=== PATIENT | female | born 1990 | race Caucasian/White ===

== ENCOUNTER 2017-05-31 03:56 | Inpatient (IN) | payer BC ==
[2017-05-31] MEDS ORDERED: Misoprostol 25 MCG (1/4 of 100 MCG) Tab ONE ×2 (07:34→15:20)
--- NOTE | 2017-05-31 07:40 | PCM.SN ---
- Free Text/Narrative Note: Cytotec 25 mcg placed at cervix 1-2,50,soft, posterior, vertex-2 Cat I FHR
--- NOTE | 2017-05-31 10:45 | PCM.SN ---
- Free Text/Narrative Note: Cervix 1-2 cm, 60%, soft, posterior, vertex-3. Due for second Cytotec at 1130. Cat I FHR.
[2017-05-31] MEDS ORDERED: Sodium Chloride 0.9% 10 ML Syringe FLUSH PRN (11:12)
[2017-05-31] MEDS: Misoprostol 25 MCG (1/4 of 100 MCG) Tab VAG SCH ×2 (11:35→16:55)
--- NOTE | 2017-05-31 12:45 | PCM.LDHP ---
<MartiCheri - Last Filed: 05/31/17 11:25> L&D History of Present Illness - General Date of Service: 05/31/17 Admit Problem/Dx: History of Present Illness: Mal is a pleasant 26-year-old white female, 39 weeks 3/7 days gestation with an TONO of 06/04/2017 who was admitted this morning, 05/31/2017 to labor and delivery for a scheduled induction. The patient has gestational diabetes and checks her blood sugar 4x/day. She has been experiencing [place] Murguia contractions for the past 2 weeks. Upon admission, she is presenting with a cervix measuring 1-2 cm, posterior, soft, vertex -[address] Le administered 25 mcg of Cytotec vaginally to be continued Q3h x 3 doses. Patient remarks that the contractions start in her shoulders and she can feel them move down towards her pelvis. Patient has been experiencing fatigue and appropriate weight changes throughout . Denies fever/chills, sweating/night sweats and malaise. Has experienced mild heartburn that has been relieved with Tums. She has noticed dribbling and incontinence and wears/changes pads throughout the day. Patient experiences nausea and vomiting every morning around the time she brushes her teeth. Gums bleed easily. Patient has had restless leg syndrome during this which is relieved with Tylenol and Benadryl. Course: The patient's last known menstrual period was 11/04/2015 with IUD implantation bleeding. She had an IUD removal 08/07/2016 with a positive test September 21, 2016. No control was in place at the time of conception. She received three ultrasounds throughout : 11/05/2016, 01/22/5017, 2016. First menstrual period began at 11 years old. Her course has consisted of gestational diabetes. Her previous in 2014 was positive for preeclampsia. Patient has received Tdap vaccinations, but her has not. Patient is Rh negative and received Rhogam on 03/14/2017. Group B strep screen was negative. Patient denies an up to date flu shot. Her last pap smear was in October 2016 was unremarkable. Weight gain was approximately 335 pounds up to 347 pounds. Her vital signs were stable throughout and her fundal height growth was appropriate. Patient would like an epidural and plans on . Laboratory Testing: MRSA screening test-pending results. Allergies: No known drug allergies. Immunizations: Up to date on immunizations. Patient has received Rhogam for Rh negative blood type. Patient has received the Tdap vaccination. No current flu shot. Current Home Medications: Vitamins. 1 tablet PO qd. Glyburide PO 2.5 mg HS. Tylenol x 2 tablets bedtime for restless leg syndrome. Benadryl 25 mg. 2 tablets bedtime for restless leg syndrome. Tums. PRN for heartburn. Current Hospital Medications: Vitamins. 1 tablet PO qd. Cytotec. 25 mcg vaginally Q3h x 3 doses. Past Medical History: Racing heart beat in early . 2017. Preeclampsia with first . 2013. Gonorrhea. 2012. HTN with first . 2014. Positive MRSA history. 2007. Ear infections throughout childhood. Past Surgical History: Cholecystectomy- 24 years old. 2015 outpatient procedure. Vaginal delivery- 24 years old. 2013. 1 day inpatient. [place] teeth extraction- 18 years old. 2008 outpatient procedure. MRSA removed from left face and left knee. 17 years old. 2007 3 days inpatient. Infected cat scratch- 2 years old. 2001. 1 night inpatient. Family History: Father- 65 years old. Kidney cancer. Liver cancer. Mother-57 years old. Cervical cancer. Brother- 35 years old. Alive and well. Son- 2 years old. Alive and well. Social History: Patient is and an RN at [employer]. She has a Bachelors degree. She lives in a home with her and their 2-year old and feels safe at home. She is in a monogamous relationship with one sexual partner in the last 6 months. Caffeine: 1 cup of coffee/day. Occasional Red Bull Zinger drink. Alcohol: Denies alcohol use. Tobacco: Denies tobacco use. Diet: Fast food, pastas and casseroles. Exercise: Patient plays slow pitch softball Saturday and Saturday evenings. She denies prescription drug and illicit drug abuse. No service. Travel: Denies travel outside of the country in the last 6 months. 2 dogs in the home. Review of Systems: General: See HPI. Skin: Denies rashes/sores/lesions/lumps/masses. No pruritus, dryness, excessive moisture changes. Head: Denies headaches, head trauma, dizziness, syncope, vertigo, loss of consciousness or concussions. Ears: Denies otalgia, past infections, drainage/discharge and tinnitus. Eyes: Patient has never had an eye exam. Denies redness/tearing/pain, diplopia/ blurriness, or history of foreign bodies. No glasses or contact lenses. Nose/Sinuses: Patient experiences sinus pressure and congestion. She does snore. Denies sinus pain, epistaxis, sneezing and frequent colds. Mouth: Last dental exam was several years ago. Denies toothaches, pain/soreness or throat hoarseness. Neck: Denies pain, stiffness/limited range of motion, masses or swelling. Breasts: Patient has noticed discrete nipple color changes- pink to light brown. Some tenderness to touch. Patient does perform occasional self breast exams and has inverted nipples since breast development. Denies pain, lumps/ masses, and nipple discharge. Respiratory: Denies pleuritic chest pain, difficulty breathing, cough/sputum/ hemoptysis. No h/o wheezing, asthma or bronchitis. No known TB exposure, PPD, or CXR. Cardiovascular: Patient experienced tachycardia in early which Marry Denney worked-up with unremarkable results. States she has pitting edema on her abdomen. She experienced HTN and preeclampsia with her previous . Denies chest pain/discomfort/tightness/palpitations or diaphoresis. No shortness of breath, dyspnea, exertional dyspnea, or orthopnea. No h/o HTN, murmurs or heart disease. Gastrointestinal: Experiences heartburn which is relieved by Tums. Patient experiences nausea and vomiting every morning around the time she brushes her teeth. Denies abdominal pain/discomfort, food intolerances, dysphagia with solids or liquids, diarrhea, constipation, rectal bleeding, hemorrhoids or jaundice. Denies craving starch, ice and brittney. Genitourinary: Patient is experiencing dribbling/incontinence and is urinating more frequently due to this . Occasionally notices difficulty initiating a urine stream. Patient was positive for gonorrhea in 2012. Denies a change in the force or color of her urine or pain with urination. No history of infections or hematuria. Appropriate libido and no dyspareunia. SCHEDULE PLANNING MANAGER: See HPI Musculoskeletal: Experiences restless leg syndrome at night. Denies intermittent claudication, varicosities, decreased strength/ROM. Denies history of back pain/disc disease and sciatica. Neurologic: Denies memory loss, tremors or trouble concentrating, h/o convulsions/seizures or infections/meningitis. Hematologic: Gums bleed easily during . Denies easy bruising, h/o transfusions, anemia and blood diseases. Endocrine: Patient is a gestational diabetic. Denies intolerance to heat/cold, nervousness, sleeplessness, nocturia, and h/o thyroid disease. Psychiatric: Expresses that she experiences more tension and irritability with this . Denies depression, mood changes, agitation, anxiety, suicidal/ homicidal thoughts and sleep disturbances. Physical Examination: VS on admission: BP 129/62, HR 79, RR 14, Temp 96.8 degrees F, Ht: 5 feet 9 inches, Wt: 347 pounds. General: The patient is a well-developed, well-nourished pleasant female of stated age, in no acute distress. Skin: Skin of legs, arms and abdomen is uniformally cool and dry without lesions or masses. No cyanosis, clubbing, jaundice, pallor or edema noted. Healthy nails, strong and not brittle. Eyes: Conjunctiva is pink and moist bilaterally. No redness or injections of conjunctiva or sclera. Lymph nodes: No enlargements or tenderness to palpation. Lungs: No respiratory distress, nasal flaring, intercostal retractions, or gasping. CTA bilaterally. Cardiovascular: RRR, S1 and S2 noted.. No M/R/G. Dorsalis pedis, posterior tibial and radial pulses are 2+ and symmetric. Capillary refill <2 seconds. Patient has 1+ pitting edema on abdomen and trace edema on lower legs and feet. Breasts: Unremarkable to palpation. Abdomen: Patient has 1+ pitting edema on abdomen. Protuberant with . Fundal height was not assessed. Pelvic: Exam reveals 1-2 cm dilated cervix, posterior, soft, and vertex -2. Extremities: Trace edema on lower legs and feet Reflexes: Patellar reflexes were appropriate. No hyperreflexia noted. Labs/Studies: MRSA screen. Assessment: 1- 39 weeks 3/7 days intrauterine . 2- Cervix: 1-2 cm, posterior, soft and vertex -2. 3- Gestational diabetes. 4- Rh negative. 5- Obesity. 6- Nausea and vomiting associated with . Plan: 1- Delivery. 2- Cytotec administration. 3- Rhogam administration. 4- Rupture membranes, if able, to evaluate amniotic fluids. Admission Diagnosis/Problem Admission Diagnosis/Problem 05/31/17 11:26 Source of Information: Patient History Limitations: Reports: No Limitations - History of Present Illness Timing/Duration: Reports: seconds: (contractions lasting 30 seconds) Location, : Reports: Abdomen Quality: Reports: Pressure Severity: Mild - Related Data Allergies/Adverse Reactions: Allergies Allergy/AdvReac Type Severity Reaction Status Date / Time No Known Allergies Allergy Verified 10/21/14 13:25 Home Medications: Home Meds PNV95/Ferrous Fumarate/FA [ Multivitamins] 1 each PO DAILY 09/24/14 [ History] Acetaminophen/oxyCODONE [Percocet 325-5 MG] 1 - 2 tab PO Q4H PRN #60 tab [Rx] Ondansetron [Zofran ODT] 4 mg PO Q6H PRN #30 tab.dis 10/22/14 [Rx] Past Medical History Endocrine/Metabolic History: Reports: Diabetes, Gestational - Infectious Disease History Infectious Disease History: Reports: MRSA Social & Family History - Tobacco Use Smoking Status *Q: Never Smoker Second Hand Smoke Exposure: No - Caffeine Use Caffeine Use: Reports: Coffee - Alcohol Use Days Per Week of Alcohol Use: 0 Number of Drinks Per Day: 0 Total Drinks Per Week: 0 - Recreational Drug Use Recreational Drug Use: No Drug Use in Last 12 Months: No - Sexual History Sexual History: Reports: Other (See Below) (Positive for gonorrhea in 2013. Treated and cleared.) H&P Review of Systems - Review of Systems: Review Of Systems: See Below General: Reports: Fatigue HEENT: Reports: Sinus Congestion Cardiovascular: Reports: Palpitations (early .) Gastrointestinal: Reports: Nausea, Vomiting Genitourinary: Reports: Frequency, Incontinence Hematologic/Lymphatic: Reports: Easy Bleeding (gums) Immunologic: Reports: Seasonal Allergy L&D Exam - Exam Exam: See Below - Vital Signs Vital Signs: Last Vital Signs Temp 96.8 F 05/31/17 08:00 Pulse 94 05/31/17 08:00 Resp 18 05/31/17 08:00 BP 136/80 05/31/17 08:00 Pulse Ox Weight: 348 lb - OB Specific Contraction Intensity: Mild Movement: Active Orders Last 24hrs: Assessment: 1- 39 weeks 3/7 days intrauterine . 2- Cervix: 1-2 cm, posterior, soft and vertex -2. 3- Gestational diabetes. 4- Rh negative. 5- Obesity. 6- Nausea and vomiting associated with . Plan: 1- Delivery. 2- Cytotec administration. 3- Rhogam administration. 4- Rupture membranes, if able, to evaluate amniotic fluids. Active Orders 24 hr Category Date Time Status Communication Order [RC] ASDIRECTED Care 05/31/17 11:13 Active Communication Order [RC] ASDIRECTED Care 05/31/17 11:13 Active Communication Order [RC] ASDIRECTED Care 05/31/17 11:13 Active Monitoring [RC] INTERMITTENT Care 05/31/17 11:13 Active Notify Provider [RC] ASDIRECTED Care 05/31/17 11:13 Active Peripheral IV Care [RC] . DIRECTED Care 05/31/17 11:13 Active Vaginal Exam [RC] ASDIRECTED Care 05/31/17 11:13 Active Vital Signs [RC] ASDIRECTED Care 05/31/17 11:13 Active Regular Diet [DIET] Diet 05/31/17 Lunch Active METH-RESIST S.AUR,MRSA BY PCR [MOLEC] Routine Lab 05/31/17 08:20 Ordered Lactated Ringers [Ringers, Lactated] 1,000 ml Med 05/31/17 11:15 Active IV ASDIRECTED Misoprostol [Cytotec] Med 05/31/17 11:30 Active 25 mcg VAG ONETIME Sodium Chloride 0.9% [Saline Flush] Med 05/31/17 11:12 Active 10 ml FLUSH ASDIRECTED PRN Peripheral IV Insertion Adult [OM.PC] Routine Oth 05/31/17 11:13 Ordered Saline Lock Insert [OM.PC] Routine Oth 05/31/17 11:12 Ordered Medication Orders Lactated Ringer's (Ringers, Lactated) 1,000 mls @ 40 mls/hr IV ASDIRECTED TAMIE Misoprostol (Cytotec) 25 mcg VAG ONETIME TAMIE Stop: 06/02/17 11:31 Sodium Chloride (Saline Flush) 10 ml FLUSH ASDIRECTED PRN PRN Reason: Keep Vein Open <Maco Le - Last Filed: 05/31/17 13:19> L&D History of Present Illness - General Admit Problem/Dx: Admission Diagnosis/Problem Admission Diagnosis/Problem L&D Exam - Vital Signs Vital Signs: Last Vital Signs Temp 96.8 F 05/31/17 08:00 Pulse 94 05/31/17 08:00 Resp 18 05/31/17 08:00 BP 136/80 05/31/17 08:00 Pulse Ox - OB Specific Presentation: Vertex - Damian Score Damian Score Cervix Position: Posterior Damian Score Consistency: Soft Damian Score Effacement: 31-50% Damian Score Dilation: 1-2 cm Damian Score 's Station: -2 Damian Score Total: 5 - Exam General: Alert, Oriented HEENT: Conjunctiva Clear, Mucosa Moist & [place], Normal Nasal Septum, PERRLA Neck: Supple, Trachea Midline Lungs: Clear to Auscultation, Normal Respiratory Effort Cardiovascular: Regular Rate, Regular Rhythm GI/Abdominal Exam: Normal Bowel Sounds, Soft, Non-Tender, No Organomegaly, No Distention, No Abnormal Bruit, No Mass, Pelvis Stable Genitourinary: Normal external exam, Normal bimanual exam, Normal speculum exam Back Exam: Normal Inspection, Full Range of Motion Extremities: Normal Inspection, Normal Range of Motion, Non-Tender, No Pedal Edema, Normal Capillary Refill Skin: Warm, Dry, Intact Neurological: Cranial Nerves Intact, Reflexes Equal Bilateral Psychiatric: Alert, Normal Affect, Normal Mood - Patient Data Lab Results Last 24 hrs: Laboratory Results - last 24 hr 05/31/17 Range/Units 10:55 MRSA (PCR) Negative - Problem List (1) 39 weeks gestation of SNOMED Code(s): 27564327 ICD Code: Z3A.39 - 39 WEEKS GESTATION OF Status: Acute Current Visit: Yes (2) Gestational diabetes mellitus (GDM) affecting second SNOMED Code(s): 94032789782710 ICD Code: O24.419 - GESTATIONAL DIABETES MELLITUS IN , UNSP CONTROL ; O09.40 - SUPERVISION OF W GRAND MULTIPARITY, UNSP TRIMESTER Status : Acute Current Visit: Yes (3) Rh negative status during in third trimester, antepartum SNOMED Code(s): 219480193, 299163233 ICD Code: O09.893 - SUPERVISION OF OTHER HIGH RISK PREGNANCIES, THIRD TRIMESTER Status: Acute Current Visit: Yes Problem List Initiated/Reviewed/Updated: No Orders Last 24hrs: Active Orders 24 hr Category Date Time Status Communication Order [RC] ASDIRECTED Care 05/31/17 11:13 Active Communication Order [RC] ASDIRECTED Care 05/31/17 11:13 Active Communication Order [RC] ASDIRECTED Care 05/31/17 11:13 Active Monitoring [RC] INTERMITTENT Care 05/31/17 11:13 Active Notify Provider [RC] ASDIRECTED Care 05/31/17 11:13 Active Peripheral IV Care [RC] . DIRECTED Care 05/31/17 11:13 Active Vaginal Exam [RC] ASDIRECTED Care 05/31/17 11:13 Active Vital Signs [RC] ASDIRECTED Care 05/31/17 11:13 Active Regular Diet [DIET] Diet 05/31/17 Lunch Active Lactated Ringers [Ringers, Lactated] 1,000 ml Med 05/31/17 11:15 Active IV ASDIRECTED Misoprostol [Cytotec] Med 05/31/17 11:30 Active 25 mcg VAG ONETIME Sodium Chloride 0.9% [Saline Flush] Med 05/31/17 11:12 Active 10 ml FLUSH ASDIRECTED PRN Peripheral IV Insertion Adult [OM.PC] Routine Oth 05/31/17 11:13 Ordered Saline Lock Insert [OM.PC] Routine Oth 05/31/17 11:12 Ordered Medication Orders Lactated Ringer's (Ringers, Lactated) 1,000 mls @ 40 mls/hr IV ASDIRECTED TAMIE Misoprostol (Cytotec) 25 mcg VAG ONETIME TAMIE Stop: 06/02/17 11:31 Last Admin: 05/31/17 11:35 Dose: 25 mcg Sodium Chloride (Saline Flush) 10 ml FLUSH ASDIRECTED PRN PRN Reason: Keep Vein Open Assessment/Plan Comment:: Induction of labor
--- NOTE | 2017-05-31 13:25 | PCM.SN ---
- Free Text/Narrative Note: Second dose of Cytotec at 1130 and MRSA screen negative. Third dose of Cytotec will be given at about 1430.
--- NOTE | 2017-05-31 17:02 | PCM.SN ---
- Free Text/Narrative Note: Cervix 2, 60, soft, post, vertex-2 Cat I FHR. Contractions [id number]. Third 25 mcg cytotec placed. Start pitocin if contractions stall out at 2100.
--- NOTE | 2017-05-31 17:22 | PCM.SN ---
- Free Text/Narrative Note: Cervix 1-2, 70, soft, posterior, vertex zero station and contractions 2-3 minutes. Cat I FHR. Pitocin at 18 miu/min.
[2017-05-31] MEDS: Lactated Ringers 1,000 ML IV SCH ×3 (20:55→23:05)
[2017-05-31] MEDS ORDERED: Lidocaine 1% 50 ML MDV INJECT ONE (21:26)
[2017-05-31] MEDS ORDERED: Ondansetron 4 MG/2 ML SDV IVPUSH PRN (21:26)
[2017-05-31] MEDS ORDERED: Lactated Ringers 1,000 ML IV SCH (21:30)
[2017-05-31] MEDS ORDERED: fentaNYL 100 MCG/2 ML SDV EPIDUR PRN (21:35)
[2017-05-31] MEDS ORDERED: diphenhydrAMINE 50 MG/ML SDV IVPUSH PRN (21:35)
[2017-05-31] MEDS ORDERED: Bupivacaine/fentaNYL/NS 100 ML Bag EPIDUR SCH (21:45)
--- NOTE | 2017-05-31 22:14 | PCM.PREANE ---
Preanesthetic Assessment - Anesthesia/Transfusion/Family Hx Anesthesia History: Prior Anesthesia Without Reaction Family History of Anesthesia Reaction: No Transfusion History: No Prior Transfusion(s) - Review of Systems General: No Symptoms Pulmonary: No Symptoms Cardiovascular: No Symptoms Gastrointestinal: No Symptoms Neurological: No Symptoms Other: Reports: Diabetes (gestational) - Physical Assessment Pulse: 94 O2 Sat by Pulse Oximetry: 97 Respiratory Rate: 18 Blood Pressure: 136/80 Temperature: 36.0 C Vital Signs: Last Vital Signs Temp 36.0 C 05/31/17 08:00 Pulse 94 05/31/17 08:00 Resp 18 05/31/17 08:00 BP 136/80 05/31/17 08:00 Pulse Ox Height: 1.78 m Weight: 157.85 kg ASA Class: 2 Mental Status: Alert & Oriented x3 Airway Class: Mallampati = 1 Dentition: Reports: Normal Dentition Thyro-Mental Finger Breadths: 3 Mouth Opening Finger Breadths: 3 ROM/Head Extension: Full Lungs: Clear to Auscultation, Normal Respiratory Effort Cardiovascular: Regular Rate, Regular Rhythm - Lab Values: Laboratory Last Values WBC 16.77 K/mm3 (3.98-10.04) H 05/31/17 21:38 RBC 3.95 M/mm3 (3.98-5.22) L 05/31/17 21:38 Hgb 11.2 gm/L (11.2-15.7) 05/31/17 21:38 Hct 34.0 % (34.1-44.9) L 05/31/17 21:38 MCV 86.1 fl (79.4-94.8) 05/31/17 21:38 MCH 28.4 pg (25.6-32.2) 05/31/17 21:38 MCHC 32.9 g/dl (32.2-35.5) 05/31/17 21:38 RDW Std Deviation 44.0 fL (36.4-46.3) 05/31/17 21:38 Plt Count 251 K/mm3 (182-369) 05/31/17 21:38 MPV 10.0 fl (9.4-12.3) 05/31/17 21:38 MRSA (PCR) Negative 05/31/17 10:55 - Allergies Allergies/Adverse Reactions: Allergies Allergy/AdvReac Type Severity Reaction Status Date / Time No Known Allergies Allergy Verified 05/31/17 20:31 - Anesthesia Plan Pre-Op Medication Ordered: None - Acknowledgements Anesthesia Type Planned: Epidural Pt an Appropriate Candidate for the Planned Anesthesia: Yes Alternatives and Risks of Anesthesia Discussed w Pt/Guardian: Yes Pt/Guardian Understands and Agrees with Anesthesia Plan: Yes PreAnesthesia Questionnaire Gastrointestinal History: Reports: GERD Endocrine/Metabolic History: Reports: Diabetes, Gestational - Infectious Disease History Infectious Disease History: Reports: MRSA - SUBSTANCE USE Smoking Status *Q: Never Smoker Tobacco Use Within Last Twelve Months: No Second Hand Smoke Exposure: No Days Per Week of Alcohol Use: 0 Number of Drinks Per Day: 0 Total Drinks Per Week: 0 Recreational Drug Use History: No - HOME MEDS Home Medications: Home Meds PNV95/Ferrous Fumarate/FA [ Multivitamins] 1 each PO DAILY 09/24/14 [ History] - CURRENT (IN HOUSE) MEDS Current Meds: Current Medications Diphenhydramine HCl (Benadryl) 25 mg IVPUSH Q6H PRN PRN Reason: Itching Ephedrine Sulfate (Ephedrine Sulfate) 5 mg IVPUSH ASDIRECTED PRN PRN Reason: HYPOTENTSION Fentanyl (Sublimaze) 100 mcg EPIDUR Q3H PRN PRN Reason: PAIN Last Admin: 05/31/17 22:06 Dose: 100 mcg Fentanyl/Bupivacaine HCl (Fentanyl/Bupivacaine/Ns 2 Mcg-0.125% 100 Ml) 100 ml EPIDUR ASDIRECTED TAMIE Last Admin: 05/31/17 22:07 Dose: 100 ml Lactated Ringer's (Ringers, Lactated) 1,000 mls @ 40 mls/hr IV ASDIRECTED TAMIE Last Admin: 05/31/17 20:55 Dose: 40 mls/hr Oxytocin 10 unit/ Lactated (Ringer's) 1,001 mls @ 12.01 mls/hr IV TITRATE TAMIE; 2 MUNITS/MIN PRN Reason: Protocol Lactated Ringer's (Ringers, Lactated) 1,000 mls @ 100 mls/hr IV ASDIRECTED TAMIE Misoprostol (Cytotec) 25 mcg VAG ONETIME TAMIE Stop: 06/02/17 11:31 Last Admin: 05/31/17 16:55 Dose: 25 mcg Ondansetron HCl (Zofran) 4 mg IVPUSH Q4H PRN PRN Reason: Nausea/Vomiting Sodium Chloride (Saline Flush) 10 ml FLUSH ASDIRECTED PRN PRN Reason: Keep Vein Open Discontinued Medications Lidocaine HCl (Xylocaine 1%) 20 ml INJECT ONETIME ONE Stop: 05/31/17 21:27 Misoprostol (Cytotec) Confirm Administered Dose 25 mcg .ROUTE .STK-MED ONE Stop: 05/31/17 07:35 Last Admin: 05/31/17 07:35 Dose: 25 mcg Misoprostol (Cytotec) Confirm Administered Dose 25 mcg .ROUTE .STK-MED ONE Stop: 05/31/17 15:21 Last Admin: 05/31/17 19:04 Dose: Not Given
[2017-05-31] MEDS ORDERED: Sodium Chloride 0.9% 10 ML ONE (22:15)
[2017-05-31] MEDS: ePHEDrine 50 MG/ML SDV IVPUSH PRN ×2 (22:24→22:34)
--- NOTE | 2017-05-31 23:36 | PCM.SN ---
- Free Text/Narrative Note: Spontaneous rupture of membranes at 2014 clear fluid. RN exam then cervix 3 cm. Exam now 4 cm, 60-70%, soft, midposition. Vertex -1. Cat I FHR. Epidural working well.
[2017-06-01] MEDS ORDERED: Lidocaine 1% 50 ML MDV ONE (03:58)
--- NOTE | 2017-06-01 04:26 | PCM.DEL ---
L & D Note - General Info Date of Service: 06/01/17 Mother's Due Date: 06/06/17 - Delivery Note Labor: Spontaneous, Augmented by Oxytocin Delivery Outcome: Livebirth (Female born 0356 hrs. Saturday06/01/17 JEFF tight shoulders taking approximately 60 seconds to deliver but never stuck Conrad, suprapubic pressure and gentle traction. Weight 4150 g/9 pounds 2.4 ounces Apgars 7/9) Infant Delivery Mode: Spontaneous Presentation: Right Occiput Anterior (JEFF) Nuchal Cord: None Prep: Povidone-Iodine (Betadine Anesthesia Type: Epidural Episiotomy Type: None Laceration: 1st Degree (Left labia minora at the level of the clitoris bleeding stopped with pressure not sutured) Placenta: Intact, Spontaneous (0401 hrs. Claudette examined intact discarded) Cord: 3 Vessels Estimated Blood Loss: 500 Resuscitation Needed: No : Suctioned, Bulb Syringe, Stimulated, Warmed, [place] Used, Warmer Used Provider: Maco Le Score 1 min: 7 Score 5 min: 9 - Patient Data Vitals - Most Recent: Last Vital Signs Temp 96.8 F 05/31/17 22:14 Pulse 88 06/01/17 01:31 Resp 18 05/31/17 22:14 BP 108/74 06/01/17 01:31 Pulse Ox 99 05/31/17 23:01 Weight - Most Recent: 348 lb I&O - Last 24 Hours: Intake & Output 05/31/17 05/31/17 06/01/17 14:59 22:59 06:59 Intake Total 0 1999 Balance 0 1999 Lab Results Last 24 Hours: Laboratory Results - last 24 hr 05/31/17 05/31/17 05/31/17 Range/Units 10:55 21:38 21:38 WBC 16.77 H (3.98-10.04) K/mm3 RBC 3.95 L (3.98-5.22) M/mm3 Hgb 11.2 (11.2-15.7) gm/L Hct 34.0 L (34.1-44.9) % MCV 86.1 (79.4-94.8) fl MCH 28.4 (25.6-32.2) pg MCHC 32.9 (32.2-35.5) g/dl RDW Std Deviation 44.0 (36.4-46.3) fL Plt Count 251 (182-369) K/mm3 MPV 10.0 (9.4-12.3) fl MRSA (PCR) Negative Blood Type O NEGATIVE Gel Antibody Screen Negative Med Orders - Current: Current Medications Diphenhydramine HCl (Benadryl) 25 mg IVPUSH Q6H PRN PRN Reason: Itching Ephedrine Sulfate (Ephedrine Sulfate) 5 mg IVPUSH ASDIRECTED PRN PRN Reason: HYPOTENTSION Last Admin: 05/31/17 22:34 Dose: 5 mg Fentanyl (Sublimaze) 100 mcg EPIDUR Q3H PRN PRN Reason: PAIN Last Admin: 05/31/17 22:06 Dose: 100 mcg Fentanyl/Bupivacaine HCl (Fentanyl/Bupivacaine/Ns 2 Mcg-0.125% 100 Ml) 100 ml EPIDUR ASDIRECTED TAMIE Last Admin: 05/31/17 22:07 Dose: 100 ml Lactated Ringer's (Ringers, Lactated) 1,000 mls @ 40 mls/hr IV ASDIRECTED TAMIE Last Admin: 05/31/17 23:05 Dose: 40 mls/hr Oxytocin 10 unit/ Lactated (Ringer's) 1,001 mls @ 12.01 mls/hr IV TITRATE TAMIE; 2 MUNITS/MIN PRN Reason: Protocol Last Titration: 06/01/17 03:37 Dose: 0 munits/min, 0 mls/hr Lactated Ringer's (Ringers, Lactated) 1,000 mls @ 100 mls/hr IV ASDIRECTED TAMIE Misoprostol (Cytotec) 25 mcg VAG ONETIME TAMIE Stop: 06/02/17 11:31 Last Admin: 05/31/17 16:55 Dose: 25 mcg Ondansetron HCl (Zofran) 4 mg IVPUSH Q4H PRN PRN Reason: Nausea/Vomiting Last Admin: 06/01/17 03:15 Dose: 4 mg Sodium Chloride (Saline Flush) 10 ml FLUSH ASDIRECTED PRN PRN Reason: Keep Vein Open Discontinued Medications Sodium Chloride (Normal Saline) Confirm Administered Dose 10 mls @ as directed .ROUTE .STK-MED ONE Stop: 05/31/17 22:16 Last Admin: 05/31/17 23:19 Dose: Not Given Lidocaine HCl (Xylocaine 1%) 20 ml INJECT ONETIME ONE Stop: 05/31/17 21:27 Lidocaine HCl (Xylocaine 1%) Confirm Administered Dose 50 ml .ROUTE .STK-MED ONE Stop: 06/01/17 03:59 Misoprostol (Cytotec) Confirm Administered Dose 25 mcg .ROUTE .STK-MED ONE Stop: 05/31/17 07:35 Last Admin: 05/31/17 07:35 Dose: 25 mcg Misoprostol (Cytotec) Confirm Administered Dose 25 mcg .ROUTE .STK-MED ONE Stop: 05/31/17 15:21 Last Admin: 05/31/17 19:04 Dose: Not Given - Problem List & Annotations (1) 39 weeks gestation of SNOMED Code(s): 09155657 Code(s): Z3A.39 - 39 WEEKS GESTATION OF Status: Acute Current Visit: Yes (2) Gestational diabetes mellitus (GDM) affecting second SNOMED Code(s): 99708675664261 Code(s): O24.419 - GESTATIONAL DIABETES MELLITUS IN , UNSP CONTROL; O09.40 - SUPERVISION OF W GRAND MULTIPARITY, UNSP TRIMESTER Status: Acute Current Visit: Yes (3) Rh negative status during in third trimester, antepartum SNOMED Code(s): 443360036, 667997820 Code(s): O09.893 - SUPERVISION OF OTHER HIGH RISK PREGNANCIES, THIRD TRIMESTER Status: Acute Current Visit: Yes - Problem List Review Problem List Initiated/Reviewed/Updated: No - My Orders Last 24 Hours: My Active Orders 05/31/17 07:00 Patient Status [ADT] Routine 05/31/17 11:12 Sodium Chloride 0.9% [Saline Flush] 10 ml FLUSH ASDIRECTED PRN Saline Lock Insert [OM.PC] Routine 05/31/17 11:13 Communication Order [RC] Communication Order [RC] Notify Provider [RC] Peripheral IV Care [RC] Vital Signs [RC] Peripheral IV Insertion Adult [OM.PC] Routine 05/31/17 11:15 Lactated Ringers [Ringers, Lactated] 1,000 ml IV ASDIRECTED 05/31/17 11:30 Misoprostol [Cytotec] 25 mcg VAG ONETIME 05/31/17 19:15 Oxytocin [Pitocin] 10 unit Lactated Ringers [Ringers, Lactated] 1,000 ml IV TITRATE 05/31/17 21:26 Communication Order [RC] Notify Provider [RC] PRN Ondansetron [Zofran] 4 mg IVPUSH Q4H PRN Electronic Heart Tones Ext w TOCO [WOMSER] Routine Electronic Heart Tones Internal [WOMSER] Per Unit Routine Resuscitation Status Routine 05/31/17 21:30 Lactated Ringers [Ringers, Lactated] 1,000 ml IV ASDIRECTED 05/31/17 Lunch Regular Diet [DIET] - Assessment Assessment:: Spontaneous vaginal delivery at 0356 hrs. on Saturdays06/01/17 - Plan Plan:: Induction of labor
[2017-06-01] MEDS ORDERED: Docusate Sodium 100 MG Cap PO PRN (04:55)
[2017-06-01] MEDS ORDERED: Acetaminophen 325 MG Tab PO PRN (04:55)
[2017-06-01] MEDS ORDERED: Benzocaine/Menthol 20%-0.5% Spray 56 GM Canister TOP PRN (05:02)
[2017-06-01] MEDS: Ibuprofen 600 MG Tab PO PRN ×2 (05:24→13:31)
--- NOTE | 2017-06-01 11:01 | PCM.SN ---
- Free Text/Narrative Note: note: Afebrile, chest clear no abnormal breath sounds. Heart sounds normal. Breast exam negative. Abdomen nontender uterus at U -2. No heavy vaginal bleeding no leg cramping reflexes normal.
[2017-06-01] MEDS ORDERED: Bupivacaine 0.25% 10 ML SDV ONE (22:22)
[2017-06-02 04:18] VITALS: BP 136/69
--- NOTE | 2017-06-02 10:02 | PCM.DCSUM1 ---
Discharge Summary - Hospital Course Free Text/Narrative:: [facility] LIVE L/D Delivery Note Patient Name: PAULINA MENSAH Date of : 89 Patient Status: Inpatient Attending Provider: Maco Le Date: 06/01/17 04:22 Initialization Date: 06/01/17 04:22 Addendum entered and electronically signed by Maco Le MD 06/01/17 04 :37: TONO 06/04/2017 not 06/06/2017 as shown below Original Note: L & D Note - General Info Date of Service: 06/01/17 Mother's Due Date: 06/06/17 - Delivery Note Labor: Spontaneous, Augmented by Oxytocin Delivery Outcome: Livebirth (Female born 0356 hrs. Saturday06/01/17 JEFF tight shoulders taking approximately 60 seconds to deliver but never stuck Conrad, suprapubic pressure and gentle traction. Weight 4150 g/9 pounds 2.4 ounces Apgars 7/9) Delivery Mode: Spontaneous Presentation: Right Occiput Anterior (JEFF) Nuchal Cord: None Prep: Povidone-Iodine (Betadine Anesthesia Type: Epidural Episiotomy Type: None Laceration: 1st Degree (Left labia minora at the level of the clitoris bleeding stopped with pressure not sutured) Placenta: Intact, Spontaneous (0401 hrs. Wilkins examined intact discarded) Cord: 3 Vessels Estimated Blood Loss: 500 Resuscitation Needed: No : Suctioned, Bulb Syringe, Stimulated, Warmed, [place] Used, Warmer Used Provider: Maco Le Score 1 min: 7 Score 5 min: 9 - Patient Data Vitals - Most Recent: Last Vital Signs Temp 96.8 F 05/31/17 22:14 Pulse 88 06/01/17 01:31 Resp 18 05/31/17 22:14 BP 108/74 06/01/17 01:31 Pulse Ox 99 05/31/17 23:01 Weight - Most Recent: 348 lb I&O - Last 24 Hours: Intake & Output 05/31/17 05/31/17 06/01/17 14:59 22:59 06:59 Intake Total 0 1999 Balance 0 1999 Lab Results Last 24 Hours: Laboratory Results - last 24 hr 05/31/17 05/31/17 05/31/17 Range/Units 10:55 21:38 21:38 WBC 16.77 H (3.98-10.04) K/mm3 RBC 3.95 L (3.98-5.22) M/mm3 Hgb 11.2 (11.2-15.7) gm/L Hct 34.0 L (34.1-44.9) % MCV 86.1 (79.4-94.8) fl MCH 28.4 (25.6-32.2) pg MCHC 32.9 (32.2-35.5) g/dl RDW Std Deviation 44.0 (36.4-46.3) fL Plt Count 251 (182-369) K/mm3 MPV 10.0 (9.4-12.3) fl MRSA (PCR) Negative Blood Type O NEGATIVE Gel Antibody Screen Negative Med Orders - Current: Current Medications Diphenhydramine HCl (Benadryl) 25 mg IVPUSH Q6H PRN PRN Reason: Itching Ephedrine Sulfate (Ephedrine Sulfate) 5 mg IVPUSH ASDIRECTED PRN PRN Reason: HYPOTENTSION Last Admin: 05/31/17 22:34 Dose: 5 mg Fentanyl (Sublimaze) 100 mcg EPIDUR Q3H PRN PRN Reason: PAIN Last Admin: 05/31/17 22:06 Dose: 100 mcg Fentanyl/Bupivacaine HCl (Fentanyl/Bupivacaine/Ns 2 Mcg-0.125% 100 Ml) 100 ml EPIDUR ASDIRECTED TAMIE Last Admin: 05/31/17 22:07 Dose: 100 ml Lactated Ringer's (Ringers, Lactated) 1,000 mls @ 40 mls/hr IV ASDIRECTED TAMIE Last Admin: 05/31/17 23:05 Dose: 40 mls/hr Oxytocin 10 unit/ Lactated (Ringer's) 1,001 mls @ 12.01 mls/hr IV TITRATE TAMIE; 2 MUNITS/MIN PRN Reason: Protocol Last Titration: 06/01/17 03:37 Dose: 0 munits/min, 0 mls/hr Lactated Ringer's (Ringers, Lactated) 1,000 mls @ 100 mls/hr IV ASDIRECTED TAMIE Misoprostol (Cytotec) 25 mcg VAG ONETIME TAMIE Stop: 06/02/17 11:31 Last Admin: 05/31/17 16:55 Dose: 25 mcg Ondansetron HCl (Zofran) 4 mg IVPUSH Q4H PRN PRN Reason: Nausea/Vomiting Last Admin: 06/01/17 03:15 Dose: 4 mg Sodium Chloride (Saline Flush) 10 ml FLUSH ASDIRECTED PRN PRN Reason: Keep Vein Open Discontinued Medications Sodium Chloride (Normal Saline) Confirm Administered Dose 10 mls @ as directed .ROUTE .STK-MED ONE Stop: 05/31/17 22:16 Last Admin: 05/31/17 23:19 Dose: Not Given Lidocaine HCl (Xylocaine 1%) 20 ml INJECT ONETIME ONE Stop: 05/31/17 21:27 Lidocaine HCl (Xylocaine 1%) Confirm Administered Dose 50 ml .ROUTE .STK-MED ONE Stop: 06/01/17 03:59 Misoprostol (Cytotec) Confirm Administered Dose 25 mcg .ROUTE .STK-MED ONE Stop: 05/31/17 07:35 Last Admin: 05/31/17 07:35 Dose: 25 mcg Misoprostol (Cytotec) Confirm Administered Dose 25 mcg .ROUTE .STK-MED ONE Stop: 05/31/17 15:21 Last Admin: 05/31/17 19:04 Dose: Not Given - Problem List & Annotations (1) 39 weeks gestation of SNOMED Code(s): 07496927 Code(s): Z3A.39 - 39 WEEKS GESTATION OF Status: Acute Current Visit: Yes (2) Gestational diabetes mellitus (GDM) affecting second SNOMED Code(s): 62295312657657 Code(s): O24.419 - GESTATIONAL DIABETES MELLITUS IN , UNSP CONTROL; O09.40 - SUPERVISION OF W GRAND MULTIPARITY, UNSP TRIMESTER Status: Acute Current Visit: Yes (3) Rh negative status during in third trimester, antepartum SNOMED Code(s): 277985252, 862627949 Code(s): O09.893 - SUPERVISION OF OTHER HIGH RISK PREGNANCIES, THIRD TRIMESTER Status: Acute Current Visit: Yes - Problem List Review Problem List Initiated/Reviewed/Updated: No - My Orders Last 24 Hours: My Active Orders 05/31/17 07:00 Patient Status [ADT] Routine 05/31/17 11:12 Sodium Chloride 0.9% [Saline Flush] 10 ml FLUSH ASDIRECTED PRN Saline Lock Insert [OM.PC] Routine 05/31/17 11:13 Communication Order [RC] Communication Order [RC] Notify Provider [RC] Peripheral IV Care [RC] Vital Signs [RC] Peripheral IV Insertion Adult [OM.PC] Routine 05/31/17 11:15 Lactated Ringers [Ringers, Lactated] 1,000 ml IV ASDIRECTED 05/31/17 11:30 Misoprostol [Cytotec] 25 mcg VAG ONETIME 05/31/17 19:15 Oxytocin [Pitocin] 10 unit Lactated Ringers [Ringers, Lactated] 1,000 ml IV TITRATE 05/31/17 21:26 Communication Order [RC] Notify Provider [RC] PRN Ondansetron [Zofran] 4 mg IVPUSH Q4H PRN Electronic Heart Tones Ext w TOCO [WOMSER] Routine Electronic Heart Tones Internal [WOMSER] Per Unit Routine Resuscitation Status Routine 05/31/17 21:30 Lactated Ringers [Ringers, Lactated] 1,000 ml IV ASDIRECTED 05/31/17 Lunch Regular Diet [DIET] - Assessment Assessment:: Spontaneous vaginal delivery at 0356 hrs. on Saturdays06/01/17 - Plan Plan:: Induction of labor HPI Initial Comments: [facility] LIVE L/D Delivery Note Patient Name: PAULINA MENSAH Date of : 89 Patient Status: Inpatient Attending Provider: Maco Le Date: 06/01/17 04:22 Initialization Date: 06/01/17 04:22 Addendum entered and electronically signed by Maco Le MD 06/01/17 04 :37: TONO 06/04/2017 not 06/06/2017 as shown below Original Note: L & D Note - General Info Date of Service: 06/01/17 Mother's Due Date: 06/06/17 - Delivery Note Labor: Spontaneous, Augmented by Oxytocin Delivery Outcome: Livebirth (Female born 0356 hrs. Saturday06/01/17 JEFF tight shoulders taking approximately 60 seconds to deliver but never stuck Conrad, suprapubic pressure and gentle traction. Weight 4150 g/9 pounds 2.4 ounces Apgars 7/9) Delivery Mode: Spontaneous Presentation: Right Occiput Anterior (JEFF) Nuchal Cord: None Prep: Povidone-Iodine (Betadine Anesthesia Type: Epidural Episiotomy Type: None Laceration: 1st Degree (Left labia minora at the level of the clitoris bleeding stopped with pressure not sutured) Placenta: Intact, Spontaneous (0401 hrs. Claudette examined intact discarded) Cord: 3 Vessels Estimated Blood Loss: 500 Resuscitation Needed: No Nash: Suctioned, Bulb Syringe, Stimulated, Warmed, [place] Used, Warmer Used Provider: Maco Le Score 1 min: 7 Score 5 min: 9 - Patient Data Vitals - Most Recent: Last Vital Signs Temp 96.8 F 05/31/17 22:14 Pulse 88 06/01/17 01:31 Resp 18 05/31/17 22:14 BP 108/74 06/01/17 01:31 Pulse Ox 99 05/31/17 23:01 Weight - Most Recent: 348 lb I&O - Last 24 Hours: Intake & Output 05/31/17 05/31/17 06/01/17 14:59 22:59 06:59 Intake Total 0 1999 Balance 0 1999 Lab Results Last 24 Hours: Laboratory Results - last 24 hr 05/31/17 05/31/17 05/31/17 Range/Units 10:55 21:38 21:38 WBC 16.77 H (3.98-10.04) K/mm3 RBC 3.95 L (3.98-5.22) M/mm3 Hgb 11.2 (11.2-15.7) gm/L Hct 34.0 L (34.1-44.9) % MCV 86.1 (79.4-94.8) fl MCH 28.4 (25.6-32.2) pg MCHC 32.9 (32.2-35.5) g/dl RDW Std Deviation 44.0 (36.4-46.3) fL Plt Count 251 (182-369) K/mm3 MPV 10.0 (9.4-12.3) fl MRSA (PCR) Negative Blood Type O NEGATIVE Gel Antibody Screen Negative Med Orders - Current: Current Medications Diphenhydramine HCl (Benadryl) 25 mg IVPUSH Q6H PRN PRN Reason: Itching Ephedrine Sulfate (Ephedrine Sulfate) 5 mg IVPUSH ASDIRECTED PRN PRN Reason: HYPOTENTSION Last Admin: 05/31/17 22:34 Dose: 5 mg Fentanyl (Sublimaze) 100 mcg EPIDUR Q3H PRN PRN Reason: PAIN Last Admin: 05/31/17 22:06 Dose: 100 mcg Fentanyl/Bupivacaine HCl (Fentanyl/Bupivacaine/Ns 2 Mcg-0.125% 100 Ml) 100 ml EPIDUR ASDIRECTED TAMIE Last Admin: 05/31/17 22:07 Dose: 100 ml Lactated Ringer's (Ringers, Lactated) 1,000 mls @ 40 mls/hr IV ASDIRECTED TAMIE Last Admin: 05/31/17 23:05 Dose: 40 mls/hr Oxytocin 10 unit/ Lactated (Ringer's) 1,001 mls @ 12.01 mls/hr IV TITRATE TAMIE; 2 MUNITS/MIN PRN Reason: Protocol Last Titration: 06/01/17 03:37 Dose: 0 munits/min, 0 mls/hr Lactated Ringer's (Ringers, Lactated) 1,000 mls @ 100 mls/hr IV ASDIRECTED TAMIE Misoprostol (Cytotec) 25 mcg VAG ONETIME TAMIE Stop: 06/02/17 11:31 Last Admin: 05/31/17 16:55 Dose: 25 mcg Ondansetron HCl (Zofran) 4 mg IVPUSH Q4H PRN PRN Reason: Nausea/Vomiting Last Admin: 06/01/17 03:15 Dose: 4 mg Sodium Chloride (Saline Flush) 10 ml FLUSH ASDIRECTED PRN PRN Reason: Keep Vein Open Discontinued Medications Sodium Chloride (Normal Saline) Confirm Administered Dose 10 mls @ as directed .ROUTE .STK-MED ONE Stop: 05/31/17 22:16 Last Admin: 05/31/17 23:19 Dose: Not Given Lidocaine HCl (Xylocaine 1%) 20 ml INJECT ONETIME ONE Stop: 05/31/17 21:27 Lidocaine HCl (Xylocaine 1%) Confirm Administered Dose 50 ml .ROUTE .STK-MED ONE Stop: 06/01/17 03:59 Misoprostol (Cytotec) Confirm Administered Dose 25 mcg .ROUTE .STK-MED ONE Stop: 05/31/17 07:35 Last Admin: 05/31/17 07:35 Dose: 25 mcg Misoprostol (Cytotec) Confirm Administered Dose 25 mcg .ROUTE .STK-MED ONE Stop: 05/31/17 15:21 Last Admin: 05/31/17 19:04 Dose: Not Given - Problem List & Annotations (1) 39 weeks gestation of SNOMED Code(s): 78094897 Code(s): Z3A.39 - 39 WEEKS GESTATION OF Status: Acute Current Visit: Yes (2) Gestational diabetes mellitus (GDM) affecting second SNOMED Code(s): 99265305348815 Code(s): O24.419 - GESTATIONAL DIABETES MELLITUS IN , UNSP CONTROL; O09.40 - SUPERVISION OF W GRAND MULTIPARITY, UNSP TRIMESTER Status: Acute Current Visit: Yes (3) Rh negative status during in third trimester, antepartum SNOMED Code(s): 144370369, 405482349 Code(s): O09.893 - SUPERVISION OF OTHER HIGH RISK PREGNANCIES, THIRD TRIMESTER Status: Acute Current Visit: Yes - Problem List Review Problem List Initiated/Reviewed/Updated: No - My Orders Last 24 Hours: My Active Orders 05/31/17 07:00 Patient Status [ADT] Routine 05/31/17 11:12 Sodium Chloride 0.9% [Saline Flush] 10 ml FLUSH ASDIRECTED PRN Saline Lock Insert [OM.PC] Routine 05/31/17 11:13 Communication Order [RC] Communication Order [RC] Notify Provider [RC] Peripheral IV Care [RC] Vital Signs [RC] Peripheral IV Insertion Adult [OM.PC] Routine 05/31/17 11:15 Lactated Ringers [Ringers, Lactated] 1,000 ml IV ASDIRECTED 05/31/17 11:30 Misoprostol [Cytotec] 25 mcg VAG ONETIME 05/31/17 19:15 Oxytocin [Pitocin] 10 unit Lactated Ringers [Ringers, Lactated] 1,000 ml IV TITRATE 05/31/17 21:26 Communication Order [RC] Notify Provider [RC] PRN Ondansetron [Zofran] 4 mg IVPUSH Q4H PRN Electronic Heart Tones Ext w TOCO [WOMSER] Routine Electronic Heart Tones Internal [WOMSER] Per Unit Routine Resuscitation Status Routine 05/31/17 21:30 Lactated Ringers [Ringers, Lactated] 1,000 ml IV ASDIRECTED 05/31/17 Lunch Regular Diet [DIET] - Assessment Assessment:: Spontaneous vaginal delivery at 0356 hrs. on Saturdays06/01/17 - Plan Plan:: Induction of labor Brief History: [facility] LIVE . L/D Delivery Note. Patient Name: PAULINA MENSAHNCedical Record Number: [id number]. Date of : Patient Status: Inpatient. Attending Provider: Maco Le Number: [id number]. Date: 06/01/17 04:22Initialization Date: 06/01/17 04:22. Addendum entered and electronically signed by Maco Le MD 06/01/17 04:37: TONO 06/04/2017 not 06/06/2017 as shown below. Original Note: L & D Note. - General Info. Date of Service: 06/01/17. Mother's Due Date: . - Delivery Note. Labor: Spontaneous, Augmented by Oxytocin. Delivery Outcome: Livebirth (Female born 0356 hrs. Saturday06/01/17 JEFF tight shoulders taking approximately 60 seconds to deliver but never stuck Conrad, suprapubic pressure and gentle traction. Weight 4150 g/9 pounds 2.4 ounces Apgars 7/9). Delivery Mode: Spontaneous. Presentation: Right Occiput Anterior (JEFF). Nuchal Cord: None. Prep: Povidone-Iodine (Betadine. Anesthesia Type: Epidural. Episiotomy Type: None. Laceration: 1st Degree ( Left labia minora at the level of the clitoris bleeding stopped with pressure not sutured). Placenta: Intact, Spontaneous (0401 hrs. Claudette examined intact discarded). Cord: 3 Vessels. Estimated Blood Loss: 500. Resuscitation Needed : No. Nash: Suctioned, Bulb Syringe, Stimulated, Warmed, [place] Used, Warmer Used. Provider: Maco Le. Score 1 min: 7. Score 5 min: 9. - Patient Data. Vitals - Most Recent: Last Vital Signs. Temp 96.8 F 05/31/17 22:14. Pulse 88 06/01/17 01:31. Resp 18 22:14. BP 108/74 06/01/17 01:31. Pulse Ox 99 05/31/17 23:01. Weight - Most Recent: 348 lb. I&O - Last 24 Hours: Intake & Output. 05/31/17091708. 14:5922:5906:59. Intake [id number]. [id number]. Lab Results Last 24 Hours: Laboratory Results - last 24 hr. 05/31/1709Range/ Units. 10:5521:3821:38. WBC 16.77 H (3.98-10.04) K/mm3. RBC 3.95 L (3.98- 5.22) M/mm3. Hgb 11.2 (11.2-15.7) gm/L. Hct 34.0 L (34.1-44.9) %. MCV 86.1 (79.4-94.8) fl. MCH 28.4 (25.6-32.2) pg. MCHC 32.9 (32.2-35.5) g/dl. RDW Std Deviation 44.0 (36.4-46.3) fL. Plt Count 251 (182-369) K/mm3. MPV 10.0 (9.4-12.3) fl. MRSA (PCR) Negative. Blood Type O NEGATIVE. Gel Antibody Screen Negative. Med Orders - Current: Current Medications. Diphenhydramine HCl (Benadryl) 25 mg IVPUSH Q6H PRN. PRN Reason: Itching. Ephedrine Sulfate (Ephedrine Sulfate) 5 mg IVPUSH ASDIRECTED PRN. PRN Reason: HYPOTENTSION. Last Admin: 05/31/17 22:34 Dose: 5 mg. Fentanyl (Sublimaze) 100 mcg EPIDUR Q3H PRN. PRN Reason: PAIN. Last Admin: 05/31/17 22:06 Dose: 100 mcg. Fentanyl/Bupivacaine HCl (Fentanyl/Bupivacaine/Ns 2 Mcg-0.125% 100 Ml ) 100 ml EPIDUR ASDIRECTED TAMIE. Last Admin: 05/31/17 22:07 Dose: 100 ml. Lactated Ringer's (Ringers, Lactated) 1,000 mls @ 40 mls/hr IV ASDIRECTED TAMIE. Last Admin: 05/31/17 23:05 Dose: 40 mls/hr. Oxytocin 10 unit/ Lactated ( Ringer's) 1,001 mls @ 12.01 mls/hr IV TITRATE TAMIE; 2 MUNITS/MIN. PRN Reason: Protocol. Last Titration: 06/01/17 03:37 Dose: 0 munits/min, 0 mls/hr. Lactated Ringer's (Ringers, Lactated) 1,000 mls @ 100 mls/hr IV ASDIRECTED TAMIE. Misoprostol (Cytotec) 25 mcg VAG ONETIME TAMIE. Stop: 06/02/17 11:31. Last Admin: 05/31/17 16:55 Dose: 25 mcg. Ondansetron HCl (Zofran) 4 mg IVPUSH Q4H PRN. PRN Reason: Nausea/Vomiting. Last Admin: 06/01/17 03:15 Dose: 4 mg. Sodium Chloride (Saline Flush) 10 ml FLUSH ASDIRECTED PRN. PRN Reason : Keep Vein Open. Discontinued Medications. Sodium Chloride (Normal Saline) Confirm Administered Dose 10 mls @ as directed .ROUTE .STK-MED ONE. Stop: 05/31 22:16. Last Admin: 05/31/17 23:19 Dose: Not Given. Lidocaine HCl ( Xylocaine 1%) 20 ml INJECT ONETIME ONE. Stop: 05/31/17 21:27. Lidocaine HCl ( Xylocaine 1%) Confirm Administered Dose 50 ml .ROUTE .STK-MED ONE. Stop: 03:59. Misoprostol (Cytotec) Confirm Administered Dose 25 mcg .ROUTE .STK- MED ONE. Stop: 05/31/17 07:35. Last Admin: 05/31/17 07:35 Dose: 25 mcg. Misoprostol (Cytotec) Confirm Administered Dose 25 mcg .ROUTE .STK-MED ONE. Stop: 05/31/17 15:21. Last Admin: 05/31/17 19:04 Dose: Not Given. - Problem List & Annotations. (1) 39 weeks gestation of . SNOMED Code(s): 52705079. Code(s): Z3A.39 - 39 WEEKS GESTATION OF Status: Acute Current Visit: Yes. (2) Gestational diabetes mellitus (GDM) affecting second . SNOMED Code(s): 67205984574936. Code(s): O24.419 - GESTATIONAL DIABETES MELLITUS IN , UNSP CONTROL; O09.40 - SUPERVISION OF W GRAND MULTIPARITY, UNSP TRIMESTER Status: Acute Current Visit: Yes. (3) Rh negative status during in third trimester, antepartum. SNOMED Code (s): 426972101, 468786463. Code(s): O09.893 - SUPERVISION OF OTHER HIGH RISK PREGNANCIES, THIRD TRIMESTER Status: Acute Current Visit: Yes. - Problem List Review. Problem List Initiated/Reviewed/Updated: No. - My Orders. Last 24 Hours: My Active Orders. 05/31/17 07:00. Patient Status [ADT] Routine. 11:12. Sodium Chloride 0.9% [Saline Flush] 10 ml FLUSH ASDIRECTED PRN. Saline Lock Insert [OM.PC] Routine. 05/31/17 11:13. Communication Order [RC]. Communication Order [RC]. Notify Provider [RC]. Peripheral IV Care [RC] . Vital Signs [RC]. Peripheral IV Insertion Adult [OM.PC] Routine. 05/31/17 11:15. Lactated Ringers [Ringers, Lactated] 1,000 ml IV ASDIRECTED. 05/31/17 11:30. Misoprostol [Cytotec] 25 mcg VAG ONETIME. 05/31/17 19:15. Oxytocin [ Pitocin] 10 unit Lactated Ringers [Ringers, Lactated] 1,000 ml IV TITRATE. 21:26. Communication Order [RC]. Notify Provider [RC] PRN. Ondansetron [Zofran] 4 mg IVPUSH Q4H PRN. Electronic Heart Tones Ext w TOCO [WOMSER] Routine. Electronic Heart Tones Internal [WOMSER] Per Unit Routine. Resuscitation Status Routine. 05/31/17 21:30. Lactated Ringers [ Ringers, Lactated] 1,000 ml IV ASDIRECTED. 05/31/17 Lunch. Regular Diet [DIET] . - Assessment. Assessment:: Spontaneous vaginal delivery at 0356 hrs. on Saturdays06/01/17. - Plan. Plan:: Induction of labor - Discharge Data Discharge Date: 06/02/17 Discharge Disposition: Home, Self-Care 01 Condition: Good - Discharge Diagnosis/Problem(s) (1) 39 weeks gestation of SNOMED Code(s): 88093718 ICD Code: Z3A.39 - 39 WEEKS GESTATION OF Status: Acute Current Visit: Yes (2) Gestational diabetes mellitus (GDM) affecting second SNOMED Code(s): 17894696819283 ICD Code: O24.419 - GESTATIONAL DIABETES MELLITUS IN , UNSP CONTROL ; O09.40 - SUPERVISION OF W GRAND MULTIPARITY, UNSP TRIMESTER Status : Acute Current Visit: Yes (3) Rh negative status during in third trimester, antepartum SNOMED Code(s): 813599850, 096923199 ICD Code: O09.893 - SUPERVISION OF OTHER HIGH RISK PREGNANCIES, THIRD TRIMESTER Status: Acute Current Visit: Yes - Patient Summary/Data Complications: none Consults: none Hospital Course: uneventful - Patient Instructions Driving: Do Not Drive (x48 hrs) Showering/Bathing: May Shower Notify Provider of: Fever, Increased Pain, Swelling and Redness, Drainage, Nausea and/or Vomiting - Discharge Plan Home Medications: Home Meds PNV95/Ferrous Fumarate/FA [ Multivitamins] 1 each PO DAILY 09/24/14 [ History] Acetaminophen [Tylenol] 650 mg PO ASDIRECTED PRN 06/01/17 [History] Benzocaine/Menthol [Dermoplast Pain Relief [place]] 56 gm TOP ASDIRECTED PRN canister 06/02/17 [Rx] Docusate Sodium [Colace] 100 mg PO BID PRN cap 06/02/17 [Rx] Ibuprofen [IJD: Ibuprofen] 600 mg PO Q6H PRN tablet 06/02/17 [Rx] Patient Handouts: Vaginal Delivery, Care After, Secondhand Smoke Referrals: Maco Le MD [Physician] - - Discharge Summary/Plan Comment DC Time >30 min.: No - Patient Data Vitals - Most Recent: Last Vital Signs Temp 97.9 F 06/02/17 04:10 Pulse 63 06/02/17 04:10 Resp 14 06/02/17 04:10 BP 136/69 06/02/17 04:10 Pulse Ox 98 06/02/17 04:10 Weight - Most Recent: 348 lb Med Orders - Current: Current Medications Acetaminophen (Tylenol) 650 mg PO Q4H PRN PRN Reason: mild pain or fever Benzocaine/Menthol (Dermoplast Pain Relief [place]) 56 gm TOP ASDIRECTED PRN PRN Reason: perineal discomfort Last Admin: 06/01/17 05:25 Dose: 1 can Docusate Sodium (Colace) 100 mg PO BID PRN PRN Reason: Constipation Last Admin: 06/01/17 05:24 Dose: 100 mg Ibuprofen (Motrin) 600 mg PO Q4H PRN PRN Reason: Mild pain or fever Last Admin: 06/01/17 13:31 Dose: 600 mg Discontinued Medications Diphenhydramine HCl (Benadryl) 25 mg IVPUSH Q6H PRN PRN Reason: Itching Ephedrine Sulfate (Ephedrine Sulfate) 5 mg IVPUSH ASDIRECTED PRN PRN Reason: HYPOTENTSION Last Admin: 05/31/17 22:34 Dose: 5 mg Fentanyl (Sublimaze) 100 mcg EPIDUR Q3H PRN PRN Reason: PAIN Last Admin: 05/31/17 22:06 Dose: 100 mcg Fentanyl/Bupivacaine HCl (Fentanyl/Bupivacaine/Ns 2 Mcg-0.125% 100 Ml) 100 ml EPIDUR ASDIRECTED TAMIE Last Admin: 05/31/17 22:07 Dose: 100 ml Lactated Ringer's (Ringers, Lactated) 1,000 mls @ 40 mls/hr IV ASDIRECTED TAMIE Last Admin: 05/31/17 23:05 Dose: 40 mls/hr Oxytocin 10 unit/ Lactated (Ringer's) 1,001 mls @ 12.01 mls/hr IV TITRATE TAMIE; 2 MUNITS/MIN PRN Reason: Protocol Last Titration: 06/01/17 03:56 Dose: 999 mls/hr Lactated Ringer's (Ringers, Lactated) 1,000 mls @ 100 mls/hr IV ASDIRECTED TAMIE Sodium Chloride (Normal Saline) Confirm Administered Dose 10 mls @ as directed .ROUTE .STK-MED ONE Stop: 05/31/17 22:16 Last Admin: 05/31/17 23:19 Dose: Not Given Lidocaine HCl (Xylocaine 1%) 20 ml INJECT ONETIME ONE Stop: 05/31/17 21:27 Last Admin: 06/01/17 06:30 Dose: Not Given Lidocaine HCl (Xylocaine 1%) Confirm Administered Dose 50 ml .ROUTE .STK-MED ONE Stop: 06/01/17 03:59 Last Admin: 06/01/17 06:30 Dose: Not Given Misoprostol (Cytotec) Confirm Administered Dose 25 mcg .ROUTE .STK-MED ONE Stop: 05/31/17 07:35 Last Admin: 05/31/17 07:35 Dose: 25 mcg Misoprostol (Cytotec) 25 mcg VAG ONETIME TAMIE Stop: 06/02/17 11:31 Last Admin: 05/31/17 16:55 Dose: 25 mcg Misoprostol (Cytotec) Confirm Administered Dose 25 mcg .ROUTE .STK-MED ONE Stop: 05/31/17 15:21 Last Admin: 05/31/17 19:04 Dose: Not Given Ondansetron HCl (Zofran) 4 mg IVPUSH Q4H PRN PRN Reason: Nausea/Vomiting Last Admin: 06/01/17 03:15 Dose: 4 mg Sodium Chloride (Saline Flush) 10 ml FLUSH ASDIRECTED PRN PRN Reason: Keep Vein Open *Q Meaningful Use (DIS) - VTE *Q VTE Criteria *Q: - Stroke *Q Stroke Criteria *Q: - AMI *Q AMI Criteria *Q:
== END 2017-06-02 10:50 | disposition home or self-care (01) | DRG 560 ==
LOC: JD.OB 03:56 → OBSVTOIN 06-01 03:56
PROVIDERS: ADMIT Obstetrics & Gynecology; ATTEND Obstetrics & Gynecology
PROC: 00HU33Z Insertion of Infusion Device into Spinal Canal, Percutaneous Approach (ICD-10-PCS; 2017-05-31)
PROC: 3E0R3CZ (ICD-10-PCS; 2017-05-31)
PROC: 3E0P7GC Introduction of Other Therapeutic Substance into Female Reproductive, Via Natural or Artificial Opening (ICD-10-PCS; 2017-05-31)
PROC: 3E033VJ Introduction of Other Hormone into Peripheral Vein, Percutaneous Approach (ICD-10-PCS; 2017-05-31)
PROC: 10E0XZZ Delivery of Products of Conception, External Approach (ICD-10-PCS; principal; 2017-06-01)
DX: O99.214 Obesity complicating childbirth (principal); O24.425 Gestational diabetes mellitus in childbirth, controlled by oral hypoglycemic drugs; O70.0 First degree perineal laceration during delivery; Z3A.39 39 weeks gestation of pregnancy; Z37.0 Single live birth
CPT/HCPCS: 36415; 59409; 85025; 85027; 85461; 86850; 86900; 86901; 87641; A9270-GY; J2405; J2590; J2790; J3010; J7120

== ENCOUNTER 2019-02-02 06:59 | Inpatient (IN) | payer BC ==
[2019-02-02] MEDS ORDERED: Ondansetron 4 MG/2 ML SDV IVPUSH PRN ×2 (07:10→11:50)
[2019-02-02] MEDS ORDERED: Sodium Chloride 0.9% 10 ML Syringe FLUSH PRN (07:10)
[2019-02-02] MEDS ORDERED: Nalbuphine 20 MG/ML 1 ML Syringe IVPUSH PRN (07:10)
--- NOTE | 2019-02-02 07:21 | PCM.LDHP ---
L&D History of Present Illness - General Date of Service: 02/02/19 Admit Problem/Dx: Patient Status Order with Admit Dx/Problem 02/02/19 07:11 Patient Status [ADT] Routine Admission Diagnosis/Problem Admission Diagnosis/Problem Source of Information: Patient History Limitations: Reports: No Limitations - History of Present Illness Introduction:: 28-year-old 002 [place] 02/09/19 estimated gestational age 39 weeks 0 days presented to labor and delivery for induction of labor. Patient has gestational diabetic taking glyburide 5 mg at bedtime. 07/23/18 blood type O negative antibody screen negative, hemoglobin and hematocrits 13.4/39.4 platelets 224,000, rubella immune, serology nonreactive, urine culture mixed josie, hepatitis B surface antigen and HIV negative. GC and chlamydia probe were negative. 11/12/18 hemoglobin/hematocrit 12.6/37.6 platelets 228,000, 1 hour OB glucose screen 148. RPR nonreactive. 11/24/18 3 hour glucose tolerance test fasting 102, 1 hour 161, two-hour 145, three-hour 76. Patient is a gestational diabetic taking glyburide 5 mg at bedtime. 01/21/19 GBS negative. Plan delivery. Improves with: Reports: None Worsens with: Reports: None Associated Symptoms: Reports: N - Related Data Allergies/Adverse Reactions: Allergies Allergy/AdvReac Type Severity Reaction Status Date / Time No Known Allergies Allergy Verified 05/31/17 20:31 Home Medications: Home Meds PNV95/Ferrous Fumarate/FA [ Multivitamins] 1 each PO DAILY 09/24/14 [ History] Acetaminophen [Tylenol] 650 mg PO ASDIRECTED PRN 06/01/17 [History] Benzocaine/Menthol [Dermoplast [facility] [place]] 56 gm TOP ASDIRECTED PRN canister 06/02/17 [Rx] Docusate Sodium [Colace] 100 mg PO BID PRN cap 06/02/17 [Rx] Ibuprofen [IJD: Ibuprofen] 600 mg PO Q6H PRN tablet 06/02/17 [Rx] Past Medical History Gastrointestinal History: Reports: GERD Endocrine/Metabolic History: Reports: Diabetes, Gestational - Infectious Disease History Infectious Disease History: Reports: MRSA Social & Family History - Caffeine Use Caffeine Use: Reports: Coffee - Sexual History Sexual History: Reports: Other (See Below) (Positive for gonorrhea in 2013. Treated and cleared.) H&P Review of Systems - Review of Systems: Review Of Systems: See Below General: Reports: No Symptoms HEENT: Reports: No Symptoms Pulmonary: Reports: No Symptoms Cardiovascular: Reports: No Symptoms Gastrointestinal: Reports: No Symptoms Genitourinary: Reports: No Symptoms Musculoskeletal: Reports: No Symptoms Skin: Reports: No Symptoms Psychiatric: Reports: No Symptoms Neurological: Reports: No Symptoms Hematologic/Lymphatic: Reports: No Symptoms Immunologic: Reports: No Symptoms L&D Exam - Exam Exam: See Below - OB Specific Fundal Height In cm: 39 Movement: Active Heart Tones: Present Heart Tones per Min: 145 Heart Rate (FHR) Variability: Moderate (6-25 bmp) Presentation: Vertex - Damian Score Damian Score Cervix Position: Posterior Damian Score Consistency: Soft Damian Score Effacement: 51-70% Damian Score Dilation: 1-2 cm Damian Score Infant's Station: -3 Damian Score Total: 5 - Exam General: Alert, Oriented HEENT: Conjunctiva Clear, Mucosa Moist & [place] Neck: Supple, Trachea Midline Lungs: Clear to Auscultation, Normal Respiratory Effort Cardiovascular: Regular Rate, Regular Rhythm GI/Abdominal Exam: Normal Bowel Sounds, Soft Extremities: Normal Inspection, Normal Range of Motion, Non-Tender, No Pedal Edema, Normal Capillary Refill Skin: Warm, Dry, Intact Psychiatric: Alert, Normal Affect, Normal Mood - Problem List (1) 39 weeks gestation of SNOMED Code(s): 53420193 ICD Code: Z3A.39 - 39 WEEKS GESTATION OF Status: Acute (2) Gestational diabetes mellitus (GDM) affecting second SNOMED Code(s): 39516867837670 ICD Code: O24.419 - GESTATIONAL DIABETES MELLITUS IN , UNSP CONTROL ; O09.40 - SUPERVISION OF W GRAND MULTIPARITY, UNSP TRIMESTER Status : Acute Problem List Initiated/Reviewed/Updated: No Orders Last 24hrs: Active Orders 24 hr Category Date Time Status Patient Status [ADT] Routine ADT 02/02/19 07:11 Ordered Activity as Tolerated [RC] PFP Care 02/02/19 07:11 Ordered Communication Order [RC] ASDIRECTED Care 02/02/19 07:11 Ordered Heart Tones [RC] ASDIRECTED Care 02/02/19 07:12 Ordered Non Stress Test [RC] PER UNIT ROUTINE Care 02/02/19 07:11 Ordered Height and Weight [RC] UPON Care 02/02/19 07:10 Ordered Notify Provider [RC] PFP Care 02/02/19 07:11 Ordered Notify Provider [RC] PRN Care 02/02/19 07:11 Ordered Peripheral IV Care [RC] . DIRECTED Care 02/02/19 07:12 Ordered Vital Signs [RC] PER UNIT ROUTINE Care 02/02/19 07:11 Ordered Regular Diet [DIET] Diet 02/02/19 Breakfast Ordered CBC WITH AUTO DIFF [HEME] Stat Lab 02/02/19 07:10 Ordered RAPID PLASMA REAGIN,RPR [CHEM] Routine Lab 02/02/19 07:11 Ordered TYPE AND SCREEN [BBK] Stat Lab 02/02/19 07:10 Ordered Lactated Ringers [Ringers, Lactated] 1,000 ml Med 02/02/19 07:15 Ordered IV ASDIRECTED Nalbuphine [Nubain] Med 02/02/19 07:10 Ordered 10 mg IVPUSH Q2H PRN Ondansetron [Zofran] Med 02/02/19 07:10 Ordered 4 mg IVPUSH Q4H PRN Sodium Chloride 0.9% [Saline Flush] Med 02/02/19 07:10 Ordered 10 ml FLUSH ASDIRECTED PRN miSOPROStol [Cytotec] Med 02/02/19 07:15 Ordered 50 mcg VAG Q3H Electronic Heart Tones Ext w TOCO [WOMSER] Oth 02/02/19 07:11 Ordered Routine Electronic Heart Tones Internal [WOMSER] Per Unit Oth 02/02/19 07:11 Ordered Routine Peripheral IV Insertion Adult [OM.PC] Routine Oth 02/02/19 07:11 Ordered Resuscitation Status Routine Resus Stat 02/02/19 07:10 Ordered Assessment/Plan Comment:: Plan induction, delivery. 0740 hrs. Cytotec 50 g placed cervix unchanged from previous exam in clinic last week.
[2019-02-02] MEDS ORDERED: Misoprostol 25 MCG (1/4 of 100 MCG) Tab ONE (07:30)
[2019-02-02] MEDS: Misoprostol 25 MCG (1/4 of 100 MCG) Tab VAG SCH ×3 (07:40→13:46)
[2019-02-02] MEDS ORDERED: ePHEDrine 50 MG/ML SDV IVPUSH PRN (11:50)
[2019-02-02] MEDS ORDERED: fentaNYL/Bupivacaine-NS 2 MCG/ML-0.125%/PF 100 ML Bag EPIDUR PRN (11:50)
[2019-02-02] MEDS ORDERED: diphenhydrAMINE 50 MG/ML SDV IVPUSH PRN (11:50)
[2019-02-02] MEDS ORDERED: fentaNYL 100 MCG/2 ML SDV EPIDUR PRN (11:50)
--- NOTE | 2019-02-02 11:56 | PCM.PREANE ---
Preanesthetic Assessment - Anesthesia/Transfusion/Family Hx Anesthesia History: Prior Anesthesia Reaction Type of Anesthesia Reaction: Excessive Somnolence, Excessive Itching Transfusion History: No Prior Transfusion(s) Type of Transfusion Reactions: Reports: Other (see below) Other Type of Transfusion Reaction: takes long to awaken after general anesthesia - Review of Systems General: No Symptoms Pulmonary: No Symptoms Cardiovascular: No Symptoms Gastrointestinal: Other (GERD) Neurological: No Symptoms Other: Reports: None (Morbid Obesity), Diabetes (Gestational Diabetic, Glyburide for control. ) - Physical Assessment O2 Sat by Pulse Oximetry: 99 Respiratory Rate: 16 Vital Signs: Last Vital Signs Temp 36.8 C 02/02/19 07:11 Pulse 83 02/02/19 07:11 Resp 16 02/02/19 07:11 BP 131/71 02/02/19 07:11 Pulse Ox 99 02/02/19 07:11 Height: 1.77 m Weight: 151.817 kg ASA Class: 3 Mental Status: Alert & Oriented x3 Airway Class: Mallampati = 2 Dentition: Reports: Normal Dentition Thyro-Mental Finger Breadths: 3 Mouth Opening Finger Breadths: 3 ROM/Head Extension: Full Lungs: Clear to Auscultation, Normal Respiratory Effort Cardiovascular: Regular Rate, Regular Rhythm - Lab Values: Laboratory Last Values WBC 13.22 K/mm3 (3.98-10.04) H 02/02/19 09:32 RBC 4.21 M/mm3 (3.98-5.22) 02/02/19 09:32 Hgb 12.3 gm/L (11.2-15.7) 02/02/19 09:32 Hct 36.5 % (34.1-44.9) 02/02/19 09:32 MCV 86.7 fl (79.4-94.8) 02/02/19 09:32 MCH 29.2 pg (25.6-32.2) 02/02/19 09:32 MCHC 33.7 g/dl (32.2-35.5) 02/02/19 09:32 RDW Std Deviation 42.2 fL (36.4-46.3) 02/02/19 09:32 Plt Count 220 K/mm3 (182-369) 02/02/19 09:32 MPV 10.7 fl (9.4-12.3) 02/02/19 09:32 Neut % (Auto) 75.0 % (34.0-71.1) H 02/02/19 09:32 Lymph % (Auto) 16.0 % (19.3-51.7) L 02/02/19 09:32 [place] % (Auto) 6.3 % (4.7-12.5) 02/02/19 09:32 Eos % (Auto) 1.9 (0.7-5.8) 02/02/19 09:32 Baso % (Auto) 0.2 % (0.1-1.2) 02/02/19 09:32 Neut # (Auto) 9.92 K/mm3 (1.56-6.13) H 02/02/19 09:32 Lymph # (Auto) 2.11 K/mm3 (1.18-3.74) 02/02/19 09:32 [place] # (Auto) 0.83 K/mm3 (0.24-0.36) H 02/02/19 09:32 Eos # (Auto) 0.25 K/mm3 (0.04-0.36) 02/02/19 09:32 Baso # (Auto) 0.03 K/mm3 (0.01-0.08) 02/02/19 09:32 Manual Slide Review Abnormal smear 02/02/19 07:34 RPR Non-reactive (NONREACTIVE) 02/02/19 07:34 Blood Type O NEGATIVE 02/02/19 07:34 Gel Antibody Screen Negative 02/02/19 07:34 - Allergies Allergies/Adverse Reactions: Allergies Allergy/AdvReac Type Severity Reaction Status Date / Time No Known Allergies Allergy Verified 05/31/17 20:31 - Acknowledgements Anesthesia Type Planned: Epidural Pt an Appropriate Candidate for the Planned Anesthesia: Yes Alternatives and Risks of Anesthesia Discussed w Pt/Guardian: Yes Pt/Guardian Understands and Agrees with Anesthesia Plan: Yes PreAnesthesia Questionnaire - Past Health History Medical/Surgical History: Denies Medical/Surgical History Gastrointestinal History: Reports: GERD Endocrine/Metabolic History: Reports: Diabetes, Gestational - Infectious Disease History Infectious Disease History: Reports: MRSA Other Infectious Disease History: MRSA cleared 05/2017 - Past Surgical History GI Surgical History: Reports: Cholecystectomy Endocrine Surgical History: Reports: None - SUBSTANCE USE Smoking Status *Q: Never Smoker Tobacco Use Within Last Twelve Months: No Second Hand Smoke Exposure: No Recreational Drug Use History: No - HOME MEDS Home Medications: Home Meds PNV95/Ferrous Fumarate/FA [ Multivitamins] 1 each PO DAILY 09/24/14 [ History] Acetaminophen [Tylenol] 650 mg PO ASDIRECTED PRN 06/01/17 [History] Loratadine/Pseudoephedrine [Claritin-D 24 Hour Tablet] 1 each PO DAILY 02/02/19 [History] glyBURIDE/Metformin HCl [Glyburid-Metformin 1.25-250 mg] 5 mg PO DAILY 02/02/19 [History] - CURRENT (IN HOUSE) MEDS Current Meds: Current Medications Diphenhydramine HCl (Benadryl) 25 mg IVPUSH Q6H PRN PRN Reason: Pruritis Ephedrine Sulfate (Ephedrine Sulfate) 5 mg IVPUSH ASDIRECTED PRN PRN Reason: Hypotension Fentanyl (Sublimaze) 100 mcg EPIDUR ONETIME PRN PRN Reason: Pain Fentanyl/Bupivacaine HCl (Prtakxld-Lddjc-Ir 2 Mcg/Ml-0.125%) 100 ml EPIDUR ASDIRECTED PRN PRN Reason: Abdominal Pain Lactated Ringer's (Ringers, Lactated) 1,000 mls @ 100 mls/hr IV ASDIRECTED [facility] Misoprostol (Cytotec) 50 mcg VAG Q3H [facility] Stop: 02/02/19 13:16 Last Admin: 02/02/19 10:45 Dose: 50 mcg Nalbuphine HCl (Nubain) 10 mg IVPUSH Q2H PRN PRN Reason: pain Ondansetron HCl (Zofran) 4 mg IVPUSH Q4H PRN PRN Reason: Nausea/Vomiting Ondansetron HCl (Zofran) 4 mg IVPUSH ONETIME PRN PRN Reason: Nausea/Vomiting Sodium Chloride (Saline Flush) 10 ml FLUSH ASDIRECTED PRN PRN Reason: Keep Vein Open Discontinued Medications Misoprostol (Cytotec) Confirm Administered Dose 25 mcg .ROUTE .STK-MED ONE Stop: 02/02/19 07:31 Last Admin: 02/02/19 11:50 Dose: Not Given
[2019-02-02] MEDS ORDERED: Bupivacaine 0.25% 10 ML SDV ONE (12:00)
--- NOTE | 2019-02-02 15:40 | PCM.SN ---
- Free Text/Narrative Note: Cervix 2 cm, 70%, soft, mid-position, vertex -1. Amniotomy performed clear fluid at 1528. Cat I FHR.
[2019-02-02] MEDS: Lactated Ringers 1,000 ML IV SCH ×2 (15:47→20:15)
[2019-02-02] MEDS ORDERED: Oxytocin/Lactated Ringers 10 UNIT/1,000 ML BAG IV SCH (16:30)
--- NOTE | 2019-02-03 00:10 | PCM.DEL ---
L & D Note - General Info Date of Service: 02/03/19 Mother's Due Date: 02/09/19 - Delivery Note Labor: Augmented by ARM, Augmented by Oxytocin Cervical Ripening Method: Misoprostil (50 mcg x3 ) Delivery Outcome: Livebirth (Male liveborn Saturday02/02/19 at 2346 hrs. DUSTY weight 30/8/60 grams 8 pounds 1.3 ounces Apgars 4/4/9 with short umbilical cord back for 90 seconds start 30 seconds. (JEWELS Barcenas)) Infant Delivery Method: Spontaneous Vaginal Delivery-Single Infant Delivery Mode: Spontaneous Presentation: Left Occiput Anterior (DUSTY) Nuchal Cord: None (Short umbilical cord cause the baby to be initially" stunned " at delivery) Prep: Povidone-Iodine (Betadine Anesthesia Type: Epidural Amniotic Fluid Description: Clear Episiotomy Type: None Laceration: None Placenta: Intact, Spontaneous (Saturday02/02/19) Cord: 3 Vessels Estimated Blood Loss: 250 Resuscitation Needed: Yes [place]: Suctioned ([place] required bagging from 30 seconds after for 90 seconds.), Bulb Syringe, Stimulated, Warmed, [place] Used, Warmer Used Provider: Maco Le Score 1 min: 4 Score 5 min: 4 Score 10 min: 9 Delivery Comments (Free Text/Narrative):: Monitor strip reviewed for 2 hours prior to delivery. - General Info Date of Service: 02/02/19 Functional Status: Reports: Pain Controlled - Review of Systems General: Reports: No Symptoms HEENT: Reports: No Symptoms Pulmonary: Reports: No Symptoms Cardiovascular: Reports: No Symptoms Gastrointestinal: Reports: No Symptoms Genitourinary: Reports: No Symptoms Musculoskeletal: Reports: No Symptoms Skin: Reports: No Symptoms Neurological: Reports: No Symptoms Psychiatric: Reports: No Symptoms - Patient Data Vitals - Most Recent: Last Vital Signs Temp 98.2 F 02/02/19 07:11 Pulse 83 02/02/19 07:11 Resp 16 02/02/19 11:56 BP 131/71 02/02/19 07:11 Pulse Ox 99 02/02/19 11:56 Weight - Most Recent: 334 lb 11.2 oz Lab Results Last 24 Hours: Laboratory Results - last 24 hr 02/02/19 02/02/19 02/02/19 Range/Units 07:34 07:34 07:34 WBC 12.99 H (3.98-10.04) K/mm3 RBC 4.24 (3.98-5.22) M/mm3 Hgb 12.2 (11.2-15.7) gm/L Hct 36.4 (34.1-44.9) % MCV 85.8 (79.4-94.8) fl MCH 28.8 (25.6-32.2) pg MCHC 33.5 (32.2-35.5) g/dl RDW Std Deviation 41.7 (36.4-46.3) fL Plt Count 57 L (182-369) K/mm3 MPV 10.1 (9.4-12.3) fl Neut % (Auto) 71.4 H (34.0-71.1) % Lymph % (Auto) 16.1 L (19.3-51.7) % [place] % (Auto) 6.5 (4.7-12.5) % Eos % (Auto) 4.7 (0.7-5.8) Baso % (Auto) 0.2 (0.1-1.2) % Neut # (Auto) 9.28 H (1.56-6.13) K/mm3 Lymph # (Auto) 2.09 (1.18-3.74) K/mm3 [place] # (Auto) 0.85 H (0.24-0.36) K/mm3 Eos # (Auto) 0.61 H (0.04-0.36) K/mm3 Baso # (Auto) 0.02 (0.01-0.08) K/mm3 Manual Slide Review Abnormal smear RPR Non-reactive (NONREACTIVE) Blood Type O NEGATIVE Gel Antibody Screen Negative 02/02/19 Range/Units 09:32 WBC 13.22 H (3.98-10.04) K/mm3 RBC 4.21 (3.98-5.22) M/mm3 Hgb 12.3 (11.2-15.7) gm/L Hct 36.5 (34.1-44.9) % MCV 86.7 (79.4-94.8) fl MCH 29.2 (25.6-32.2) pg MCHC 33.7 (32.2-35.5) g/dl RDW Std Deviation 42.2 (36.4-46.3) fL Plt Count 220 (182-369) K/mm3 MPV 10.7 (9.4-12.3) fl Neut % (Auto) 75.0 H (34.0-71.1) % Lymph % (Auto) 16.0 L (19.3-51.7) % [place] % (Auto) 6.3 (4.7-12.5) % Eos % (Auto) 1.9 (0.7-5.8) Baso % (Auto) 0.2 (0.1-1.2) % Neut # (Auto) 9.92 H (1.56-6.13) K/mm3 Lymph # (Auto) 2.11 (1.18-3.74) K/mm3 [place] # (Auto) 0.83 H (0.24-0.36) K/mm3 Eos # (Auto) 0.25 (0.04-0.36) K/mm3 Baso # (Auto) 0.03 (0.01-0.08) K/mm3 Manual Slide Review RPR (NONREACTIVE) Blood Type Gel Antibody Screen Med Orders - Current: Current Medications Diphenhydramine HCl (Benadryl) 25 mg IVPUSH Q6H PRN PRN Reason: Pruritis Last Admin: 02/02/19 21:52 Dose: 25 mg Ephedrine Sulfate (Ephedrine Sulfate) 5 mg IVPUSH ASDIRECTED PRN PRN Reason: Hypotension Fentanyl (Sublimaze) 100 mcg EPIDUR ONETIME PRN PRN Reason: Pain Last Admin: 02/02/19 19:48 Dose: 100 mcg Fentanyl/Bupivacaine HCl (Grztrudr-Rkfbl-Tf 2 Mcg/Ml-0.125%) 100 ml EPIDUR ASDIRECTED PRN PRN Reason: Abdominal Pain Last Admin: 02/02/19 19:49 Dose: 100 ml Lactated Ringer's (Ringers, Lactated) 1,000 mls @ 100 mls/hr IV ASDIRECTED TAMIE Last Admin: 02/02/19 20:15 Dose: 100 mls/hr Oxytocin/Lactated Ringer's (Pitocin In Lr 10 Units/1,000 Ml) 10 unit in 1,000 mls @ 12 mls/hr IV TITRATE TAMIE; Protocol Last Titration: 02/02/19 22:15 Dose: 14 munits/min, 84 mls/hr Nalbuphine HCl (Nubain) 10 mg IVPUSH Q2H PRN PRN Reason: pain Ondansetron HCl (Zofran) 4 mg IVPUSH Q4H PRN PRN Reason: Nausea/Vomiting Sodium Chloride (Saline Flush) 10 ml FLUSH ASDIRECTED PRN PRN Reason: Keep Vein Open Discontinued Medications Misoprostol (Cytotec) 50 mcg VAG Q3H TAMIE Stop: 02/02/19 13:16 Last Admin: 02/02/19 13:46 Dose: 50 mcg Misoprostol (Cytotec) Confirm Administered Dose 25 mcg .ROUTE .STK-MED ONE Stop: 02/02/19 07:31 Last Admin: 02/02/19 11:50 Dose: Not Given Ondansetron HCl (Zofran) 4 mg IVPUSH ONETIME PRN PRN Reason: Nausea/Vomiting Stop: 02/02/19 21:00 - Exam General: Alert, Oriented HEENT: Pupils Equal, Mucous Membr. Moist/[place] Neck: Supple Lungs: Clear to Auscultation, Normal Respiratory Effort Cardiovascular: Regular Rate, Regular Rhythm Extremities: Normal Inspection, Normal Range of Motion, Non-Tender, No Pedal Edema, Normal Capillary Refill Skin: Warm, Dry, Intact Psy/Mental Status: Alert, Normal Affect, Normal Mood - Problem List & Annotations (1) 39 weeks gestation of SNOMED Code(s): 80225208 Code(s): Z3A.39 - 39 WEEKS GESTATION OF Status: Acute Current Visit: No (2) Gestational diabetes mellitus (GDM) affecting second SNOMED Code(s): 01258430850832 Code(s): O24.419 - GESTATIONAL DIABETES MELLITUS IN , UNSP CONTROL; O09.40 - SUPERVISION OF W GRAND MULTIPARITY, UNSP TRIMESTER Status: Acute Current Visit: No (3) Short umbilical cord, delivered, current hospitalization SNOMED Code(s): 513461728, 973145668 Code(s): O69.3XX0 - LABOR AND DELIVERY COMPLICATED BY SHORT CORD, UNSP Status: Acute Current Visit: Yes - Problem List Review Problem List Initiated/Reviewed/Updated: No - My Orders Last 24 Hours: My Active Orders 02/02/19 07:10 Height and Weight [RC] UPON Nalbuphine [Nubain] 10 mg IVPUSH Q2H PRN Ondansetron [Zofran] 4 mg IVPUSH Q4H PRN Sodium Chloride 0.9% [Saline Flush] 10 ml FLUSH ASDIRECTED PRN Resuscitation Status Routine 02/02/19 07:11 Patient Status [ADT] Routine Activity as Tolerated [RC] PFP Communication Order [RC] ASDIRECTED Notify Provider [RC] PFP Notify Provider [RC] PRN Vital Signs [RC] PER UNIT ROUTINE Electronic Heart Tones Ext w TOCO [WOMSER] Routine Electronic Heart Tones Internal [WOMSER] Per Unit Routine Peripheral IV Insertion Adult [OM.PC] Routine 02/02/19 07:12 Peripheral IV Care [RC] . DIRECTED 02/02/19 07:15 Lactated Ringers [Ringers, Lactated] 1,000 ml IV ASDIRECTED 02/02/19 16:30 Oxytocin/Lactated Ringers [Pitocin in LR 10 Units/1,000 ML] 10 unit in 1,000 ml IV TITRATE 02/02/19 Breakfast Regular Diet [DIET] - Plan Plan:: Plan induction, delivery. 0740 hrs. Cytotec 50 g placed cervix unchanged from previous exam in clinic last week. [place] initially's "stunned" and required bagging from 30 seconds until 2 minutes of life (90 seconds) Apgars 4/4/9 insurance analyst called as soon at 30 seconds when bagging was started.
[2019-02-03] MEDS ORDERED: Docusate Sodium 100 MG Cap PO PRN (02:41)
[2019-02-03] MEDS ORDERED: Witch Hazel Medicated Pads 40/Jar TOP PRN (02:41)
[2019-02-03] MEDS ORDERED: Acetaminophen 325 MG Tab PO PRN (02:41)
[2019-02-03] MEDS ORDERED: Ibuprofen 600 MG Tab PO PRN (02:41)
[2019-02-03] MEDS ORDERED: Oxytocin/Lactated Ringers 10 UNIT/1,000 ML BAG IV SCH (02:45)
--- NOTE | 2019-02-03 08:02 | PCM48HPAN ---
Post Anesthesia Note - EVALUATION WITHIN 48HRS OF ANESTHETIC Vital Signs in Normal Range: Yes Patient Participated in Evaluation: Yes Respiratory Function Stable: Yes Airway Patent: Yes Cardiovascular Function Stable: Yes Hydration Status Stable: Yes Pain Control Satisfactory: Yes Nausea and Vomiting Control Satisfactory: Yes Mental Status Recovered: Yes Resp Rate: 16
--- NOTE | 2019-02-03 11:04 | PCM.SN ---
- Free Text/Narrative Note: day 1 Afebrile. Chest clear no abnormal breath sounds. Cardiovascular exam normal no abnormal cardiac sounds. Abdomen is soft bowel sounds normal uterus involuting normally U -2 no heavy vaginal bleeding no leg cramping. Probably home tomorrow.
[2019-02-04 08:10] VITALS: BP 126/69
--- NOTE | 2019-02-04 08:22 | PCM.DCSUM1 ---
Discharge Summary - Hospital Course Free Text/Narrative:: [facility] LIVE L/D Delivery Note Patient Name: PAULINA MENSAH Date of : 89 Patient Status: Inpatient Attending Provider: Maco Le Date: 02/03/19 00:03 Initialization Date: 02/03/19 00:03 L & D Note - General Info Date of Service: 02/03/19 Mother's Due Date: 02/09/19 - Delivery Note Labor: Augmented by ARM, Augmented by Oxytocin Cervical Ripening Method: Misoprostil (50 mcg x3 ) Delivery Outcome: Livebirth (Male liveborn Saturday02/02/19 at 2346 hrs. DUSTY weight 30/8/60 grams 8 pounds 1.3 ounces Apgars 4/4/9 with short umbilical cord back for 90 seconds start 30 seconds. (JEWELS Barcenas)) Infant Delivery Method: Spontaneous Vaginal Delivery-Single Delivery Mode: Spontaneous Presentation: Left Occiput Anterior (DUSTY) Nuchal Cord: None (Short umbilical cord cause the baby to be initially" stunned " at delivery) Prep: Povidone-Iodine (Betadine Anesthesia Type: Epidural Amniotic Fluid Description: Clear Episiotomy Type: None Laceration: None Placenta: Intact, Spontaneous (Saturday02/02/19) Cord: 3 Vessels Estimated Blood Loss: 250 Resuscitation Needed: Yes : Suctioned ([place] required bagging from 30 seconds after for 90 seconds.), Bulb Syringe, Stimulated, Warmed, [place] Used, Warmer Used Provider: Maco Le Score 1 min: 4 Score 5 min: 4 Score 10 min: 9 Delivery Comments (Free Text/Narrative):: Monitor strip reviewed for 2 hours prior to delivery. - General Info Date of Service: 02/02/19 Functional Status: Reports: Pain Controlled - Review of Systems General: Reports: No Symptoms HEENT: Reports: No Symptoms Pulmonary: Reports: No Symptoms Cardiovascular: Reports: No Symptoms Gastrointestinal: Reports: No Symptoms Genitourinary: Reports: No Symptoms Musculoskeletal: Reports: No Symptoms Skin: Reports: No Symptoms Neurological: Reports: No Symptoms Psychiatric: Reports: No Symptoms - Patient Data Vitals - Most Recent: Last Vital Signs Temp 98.2 F 02/02/19 07:11 Pulse 83 02/02/19 07:11 Resp 16 02/02/19 11:56 BP 131/71 02/02/19 07:11 Pulse Ox 99 02/02/19 11:56 Weight - Most Recent: 334 lb 11.2 oz Lab Results Last 24 Hours: Laboratory Results - last 24 hr 02/02/19 02/02/19 02/02/19 Range/Units 07:34 07:34 07:34 WBC 12.99 H (3.98-10.04) K/mm3 RBC 4.24 (3.98-5.22) M/mm3 Hgb 12.2 (11.2-15.7) gm/L Hct 36.4 (34.1-44.9) % MCV 85.8 (79.4-94.8) fl MCH 28.8 (25.6-32.2) pg MCHC 33.5 (32.2-35.5) g/dl RDW Std Deviation 41.7 (36.4-46.3) fL Plt Count 57 L (182-369) K/mm3 MPV 10.1 (9.4-12.3) fl Neut % (Auto) 71.4 H (34.0-71.1) % Lymph % (Auto) 16.1 L (19.3-51.7) % [place] % (Auto) 6.5 (4.7-12.5) % Eos % (Auto) 4.7 (0.7-5.8) Baso % (Auto) 0.2 (0.1-1.2) % Neut # (Auto) 9.28 H (1.56-6.13) K/mm3 Lymph # (Auto) 2.09 (1.18-3.74) K/mm3 [place] # (Auto) 0.85 H (0.24-0.36) K/mm3 Eos # (Auto) 0.61 H (0.04-0.36) K/mm3 Baso # (Auto) 0.02 (0.01-0.08) K/mm3 Manual Slide Review Abnormal smear RPR Non-reactive (NONREACTIVE) Blood Type O NEGATIVE Gel Antibody Screen Negative 02/02/19 Range/Units 09:32 WBC 13.22 H (3.98-10.04) K/mm3 RBC 4.21 (3.98-5.22) M/mm3 Hgb 12.3 (11.2-15.7) gm/L Hct 36.5 (34.1-44.9) % MCV 86.7 (79.4-94.8) fl MCH 29.2 (25.6-32.2) pg MCHC 33.7 (32.2-35.5) g/dl RDW Std Deviation 42.2 (36.4-46.3) fL Plt Count 220 (182-369) K/mm3 MPV 10.7 (9.4-12.3) fl Neut % (Auto) 75.0 H (34.0-71.1) % Lymph % (Auto) 16.0 L (19.3-51.7) % [place] % (Auto) 6.3 (4.7-12.5) % Eos % (Auto) 1.9 (0.7-5.8) Baso % (Auto) 0.2 (0.1-1.2) % Neut # (Auto) 9.92 H (1.56-6.13) K/mm3 Lymph # (Auto) 2.11 (1.18-3.74) K/mm3 [place] # (Auto) 0.83 H (0.24-0.36) K/mm3 Eos # (Auto) 0.25 (0.04-0.36) K/mm3 Baso # (Auto) 0.03 (0.01-0.08) K/mm3 Manual Slide Review RPR (NONREACTIVE) Blood Type Gel Antibody Screen Med Orders - Current: Current Medications Diphenhydramine HCl (Benadryl) 25 mg IVPUSH Q6H PRN PRN Reason: Pruritis Last Admin: 02/02/19 21:52 Dose: 25 mg Ephedrine Sulfate (Ephedrine Sulfate) 5 mg IVPUSH ASDIRECTED PRN PRN Reason: Hypotension Fentanyl (Sublimaze) 100 mcg EPIDUR ONETIME PRN PRN Reason: Pain Last Admin: 02/02/19 19:48 Dose: 100 mcg Fentanyl/Bupivacaine HCl (Hkdbauek-Xsbfp-Gk 2 Mcg/Ml-0.125%) 100 ml EPIDUR ASDIRECTED PRN PRN Reason: Abdominal Pain Last Admin: 02/02/19 19:49 Dose: 100 ml Lactated Ringer's (Ringers, Lactated) 1,000 mls @ 100 mls/hr IV ASDIRECTED TAMIE Last Admin: 02/02/19 20:15 Dose: 100 mls/hr Oxytocin/Lactated Ringer's (Pitocin In Lr 10 Units/1,000 Ml) 10 unit in 1,000 mls @ 12 mls/hr IV TITRATE TAMIE; Protocol Last Titration: 02/02/19 22:15 Dose: 14 munits/min, 84 mls/hr Nalbuphine HCl (Nubain) 10 mg IVPUSH Q2H PRN PRN Reason: pain Ondansetron HCl (Zofran) 4 mg IVPUSH Q4H PRN PRN Reason: Nausea/Vomiting Sodium Chloride (Saline Flush) 10 ml FLUSH ASDIRECTED PRN PRN Reason: Keep Vein Open Discontinued Medications Misoprostol (Cytotec) 50 mcg VAG Q3H TAMIE Stop: 02/02/19 13:16 Last Admin: 02/02/19 13:46 Dose: 50 mcg Misoprostol (Cytotec) Confirm Administered Dose 25 mcg .ROUTE .STK-MED ONE Stop: 02/02/19 07:31 Last Admin: 02/02/19 11:50 Dose: Not Given Ondansetron HCl (Zofran) 4 mg IVPUSH ONETIME PRN PRN Reason: Nausea/Vomiting Stop: 02/02/19 21:00 - Exam General: Alert, Oriented HEENT: Pupils Equal, Mucous Membr. Moist/[place] Neck: Supple Lungs: Clear to Auscultation, Normal Respiratory Effort Cardiovascular: Regular Rate, Regular Rhythm Extremities: Normal Inspection, Normal Range of Motion, Non-Tender, No Pedal Edema, Normal Capillary Refill Skin: Warm, Dry, Intact Psy/Mental Status: Alert, Normal Affect, Normal Mood - Problem List & Annotations (1) 39 weeks gestation of SNOMED Code(s): 79765345 Code(s): Z3A.39 - 39 WEEKS GESTATION OF Status: Acute Current Visit: No (2) Gestational diabetes mellitus (GDM) affecting second SNOMED Code(s): 17914500956363 Code(s): O24.419 - GESTATIONAL DIABETES MELLITUS IN , UNSP CONTROL; O09.40 - SUPERVISION OF W GRAND MULTIPARITY, UNSP TRIMESTER Status: Acute Current Visit: No (3) Short umbilical cord, delivered, current hospitalization SNOMED Code(s): 870722818, 984092283 Code(s): O69.3XX0 - LABOR AND DELIVERY COMPLICATED BY SHORT CORD, UNSP Status: Acute Current Visit: Yes - Problem List Review Problem List Initiated/Reviewed/Updated: No - My Orders Last 24 Hours: My Active Orders 02/02/19 07:10 Height and Weight [RC] UPON Nalbuphine [Nubain] 10 mg IVPUSH Q2H PRN Ondansetron [Zofran] 4 mg IVPUSH Q4H PRN Sodium Chloride 0.9% [Saline Flush] 10 ml FLUSH ASDIRECTED PRN Resuscitation Status Routine 02/02/19 07:11 Patient Status [ADT] Routine Activity as Tolerated [RC] PFP Communication Order [RC] ASDIRECTED Notify Provider [RC] PFP Notify Provider [RC] PRN Vital Signs [RC] PER UNIT ROUTINE Electronic Heart Tones Ext w TOCO [WOMSER] Routine Electronic Heart Tones Internal [WOMSER] Per Unit Routine Peripheral IV Insertion Adult [OM.PC] Routine 02/02/19 07:12 Peripheral IV Care [RC] . DIRECTED 02/02/19 07:15 Lactated Ringers [Ringers, Lactated] 1,000 ml IV ASDIRECTED 02/02/19 16:30 Oxytocin/Lactated Ringers [Pitocin in LR 10 Units/1,000 ML] 10 unit in 1,000 ml IV TITRATE 02/02/19 Breakfast Regular Diet [DIET] - Plan Plan:: Plan induction, delivery. 0740 hrs. Cytotec 50 g placed cervix unchanged from previous exam in clinic last week. [place] initially's "stunned" and required bagging from 30 seconds until 2 minutes of life (90 seconds) Apgars 4/4/9 dual rate supervisor called as soon at 30 seconds when bagging was started. HPI Initial Comments: [facility] LIVE L/D Delivery Note Patient Name: PAULINA MENSAH Date of : 90 Patient Status: Inpatient Attending Provider: Maco Le Date: 02/03/19 00:03 Initialization Date: 02/03/19 00:03 L & D Note - General Info Date of Service: 02/03/19 Mother's Due Date: 02/09/19 - Delivery Note Labor: Augmented by ARM, Augmented by Oxytocin Cervical Ripening Method: Misoprostil (50 mcg x3 ) Delivery Outcome: Livebirth (Male liveborn Saturday02/02/19 at 2346 hrs. DUSTY weight 30/8/60 grams 8 pounds 1.3 ounces Apgars 4/4/9 with short umbilical cord back for 90 seconds start 30 seconds. (JEWELS Barcenas)) Delivery Method: Spontaneous Vaginal Delivery-Single Delivery Mode: Spontaneous Presentation: Left Occiput Anterior (DUSTY) Nuchal Cord: None (Short umbilical cord cause the baby to be initially" stunned " at delivery) Prep: Povidone-Iodine (Betadine Anesthesia Type: Epidural Amniotic Fluid Description: Clear Episiotomy Type: None Laceration: None Placenta: Intact, Spontaneous (Saturday02/02/19) Cord: 3 Vessels Estimated Blood Loss: 250 Resuscitation Needed: Yes [place]: Suctioned ([place] required bagging from 30 seconds after for 90 seconds.), Bulb Syringe, Stimulated, Warmed, [place] Used, Warmer Used Provider: Maco Le Score 1 min: 4 Score 5 min: 4 Score 10 min: 9 Delivery Comments (Free Text/Narrative):: Monitor strip reviewed for 2 hours prior to delivery. - General Info Date of Service: 02/02/19 Functional Status: Reports: Pain Controlled - Review of Systems General: Reports: No Symptoms HEENT: Reports: No Symptoms Pulmonary: Reports: No Symptoms Cardiovascular: Reports: No Symptoms Gastrointestinal: Reports: No Symptoms Genitourinary: Reports: No Symptoms Musculoskeletal: Reports: No Symptoms Skin: Reports: No Symptoms Neurological: Reports: No Symptoms Psychiatric: Reports: No Symptoms - Patient Data Vitals - Most Recent: Last Vital Signs Temp 98.2 F 02/02/19 07:11 Pulse 83 02/02/19 07:11 Resp 16 02/02/19 11:56 BP 131/71 02/02/19 07:11 Pulse Ox 99 02/02/19 11:56 Weight - Most Recent: 334 lb 11.2 oz Lab Results Last 24 Hours: Laboratory Results - last 24 hr 02/02/19 02/02/19 02/02/19 Range/Units 07:34 07:34 07:34 WBC 12.99 H (3.98-10.04) K/mm3 RBC 4.24 (3.98-5.22) M/mm3 Hgb 12.2 (11.2-15.7) gm/L Hct 36.4 (34.1-44.9) % MCV 85.8 (79.4-94.8) fl MCH 28.8 (25.6-32.2) pg MCHC 33.5 (32.2-35.5) g/dl RDW Std Deviation 41.7 (36.4-46.3) fL Plt Count 57 L (182-369) K/mm3 MPV 10.1 (9.4-12.3) fl Neut % (Auto) 71.4 H (34.0-71.1) % Lymph % (Auto) 16.1 L (19.3-51.7) % [place] % (Auto) 6.5 (4.7-12.5) % Eos % (Auto) 4.7 (0.7-5.8) Baso % (Auto) 0.2 (0.1-1.2) % Neut # (Auto) 9.28 H (1.56-6.13) K/mm3 Lymph # (Auto) 2.09 (1.18-3.74) K/mm3 [place] # (Auto) 0.85 H (0.24-0.36) K/mm3 Eos # (Auto) 0.61 H (0.04-0.36) K/mm3 Baso # (Auto) 0.02 (0.01-0.08) K/mm3 Manual Slide Review Abnormal smear RPR Non-reactive (NONREACTIVE) Blood Type O NEGATIVE Gel Antibody Screen Negative 02/02/19 Range/Units 09:32 WBC 13.22 H (3.98-10.04) K/mm3 RBC 4.21 (3.98-5.22) M/mm3 Hgb 12.3 (11.2-15.7) gm/L Hct 36.5 (34.1-44.9) % MCV 86.7 (79.4-94.8) fl MCH 29.2 (25.6-32.2) pg MCHC 33.7 (32.2-35.5) g/dl RDW Std Deviation 42.2 (36.4-46.3) fL Plt Count 220 (182-369) K/mm3 MPV 10.7 (9.4-12.3) fl Neut % (Auto) 75.0 H (34.0-71.1) % Lymph % (Auto) 16.0 L (19.3-51.7) % [place] % (Auto) 6.3 (4.7-12.5) % Eos % (Auto) 1.9 (0.7-5.8) Baso % (Auto) 0.2 (0.1-1.2) % Neut # (Auto) 9.92 H (1.56-6.13) K/mm3 Lymph # (Auto) 2.11 (1.18-3.74) K/mm3 [place] # (Auto) 0.83 H (0.24-0.36) K/mm3 Eos # (Auto) 0.25 (0.04-0.36) K/mm3 Baso # (Auto) 0.03 (0.01-0.08) K/mm3 Manual Slide Review RPR (NONREACTIVE) Blood Type Gel Antibody Screen Med Orders - Current: Current Medications Diphenhydramine HCl (Benadryl) 25 mg IVPUSH Q6H PRN PRN Reason: Pruritis Last Admin: 02/02/19 21:52 Dose: 25 mg Ephedrine Sulfate (Ephedrine Sulfate) 5 mg IVPUSH ASDIRECTED PRN PRN Reason: Hypotension Fentanyl (Sublimaze) 100 mcg EPIDUR ONETIME PRN PRN Reason: Pain Last Admin: 02/02/19 19:48 Dose: 100 mcg Fentanyl/Bupivacaine HCl (Smxgmxlz-Dwbgr-Bj 2 Mcg/Ml-0.125%) 100 ml EPIDUR ASDIRECTED PRN PRN Reason: Abdominal Pain Last Admin: 02/02/19 19:49 Dose: 100 ml Lactated Ringer's (Ringers, Lactated) 1,000 mls @ 100 mls/hr IV ASDIRECTED TAMIE Last Admin: 02/02/19 20:15 Dose: 100 mls/hr Oxytocin/Lactated Ringer's (Pitocin In Lr 10 Units/1,000 Ml) 10 unit in 1,000 mls @ 12 mls/hr IV TITRATE TAMIE; Protocol Last Titration: 02/02/19 22:15 Dose: 14 munits/min, 84 mls/hr Nalbuphine HCl (Nubain) 10 mg IVPUSH Q2H PRN PRN Reason: pain Ondansetron HCl (Zofran) 4 mg IVPUSH Q4H PRN PRN Reason: Nausea/Vomiting Sodium Chloride (Saline Flush) 10 ml FLUSH ASDIRECTED PRN PRN Reason: Keep Vein Open Discontinued Medications Misoprostol (Cytotec) 50 mcg VAG Q3H TAMIE Stop: 02/02/19 13:16 Last Admin: 02/02/19 13:46 Dose: 50 mcg Misoprostol (Cytotec) Confirm Administered Dose 25 mcg .ROUTE .STK-MED ONE Stop: 02/02/19 07:31 Last Admin: 02/02/19 11:50 Dose: Not Given Ondansetron HCl (Zofran) 4 mg IVPUSH ONETIME PRN PRN Reason: Nausea/Vomiting Stop: 02/02/19 21:00 - Exam General: Alert, Oriented HEENT: Pupils Equal, Mucous Membr. Moist/[place] Neck: Supple Lungs: Clear to Auscultation, Normal Respiratory Effort Cardiovascular: Regular Rate, Regular Rhythm Extremities: Normal Inspection, Normal Range of Motion, Non-Tender, No Pedal Edema, Normal Capillary Refill Skin: Warm, Dry, Intact Psy/Mental Status: Alert, Normal Affect, Normal Mood - Problem List & Annotations (1) 39 weeks gestation of SNOMED Code(s): 81672425 Code(s): Z3A.39 - 39 WEEKS GESTATION OF Status: Acute Current Visit: No (2) Gestational diabetes mellitus (GDM) affecting second SNOMED Code(s): 79200264416739 Code(s): O24.419 - GESTATIONAL DIABETES MELLITUS IN , UNSP CONTROL; O09.40 - SUPERVISION OF W GRAND MULTIPARITY, UNSP TRIMESTER Status: Acute Current Visit: No (3) Short umbilical cord, delivered, current hospitalization SNOMED Code(s): 470016979, 597668129 Code(s): O69.3XX0 - LABOR AND DELIVERY COMPLICATED BY SHORT CORD, UNSP Status: Acute Current Visit: Yes - Problem List Review Problem List Initiated/Reviewed/Updated: No - My Orders Last 24 Hours: My Active Orders 02/02/19 07:10 Height and Weight [RC] UPON Nalbuphine [Nubain] 10 mg IVPUSH Q2H PRN Ondansetron [Zofran] 4 mg IVPUSH Q4H PRN Sodium Chloride 0.9% [Saline Flush] 10 ml FLUSH ASDIRECTED PRN Resuscitation Status Routine 02/02/19 07:11 Patient Status [ADT] Routine Activity as Tolerated [RC] PFP Communication Order [RC] ASDIRECTED Notify Provider [RC] PFP Notify Provider [RC] PRN Vital Signs [RC] PER UNIT ROUTINE Electronic Heart Tones Ext w TOCO [WOMSER] Routine Electronic Heart Tones Internal [WOMSER] Per Unit Routine Peripheral IV Insertion Adult [OM.PC] Routine 02/02/19 07:12 Peripheral IV Care [RC] . DIRECTED 02/02/19 07:15 Lactated Ringers [Ringers, Lactated] 1,000 ml IV ASDIRECTED 02/02/19 16:30 Oxytocin/Lactated Ringers [Pitocin in LR 10 Units/1,000 ML] 10 unit in 1,000 ml IV TITRATE 02/02/19 Breakfast Regular Diet [DIET] - Plan Plan:: Plan induction, delivery. 0740 hrs. Cytotec 50 g placed cervix unchanged from previous exam in clinic last week. initially's "stunned" and required bagging from 30 seconds until 2 minutes of life (90 seconds) Apgars 4/4/9 dual rate supervisor called as soon at 30 seconds when bagging was started. Brief History: [facility] LIVE . L/D Delivery Note. Patient Name: PAULINA MENSAH LYNAKedical Record Number: [id number]. Date of : Patient Status: Inpatient. Attending Provider: Maco Le Number: [id number]. Date: 02/03/19 00:03Initialization Date: 02/03/19 00:03. L & D Note. - General Info. Date of Service: 02/03/19. Mother's Due Date: 02/09/19. - Delivery Note. Labor: Augmented by ARM, Augmented by Oxytocin. Cervical Ripening Method: Misoprostil (50 mcg x3 ). Delivery Outcome: Livebirth (Male liveborn Saturday02/02/19 at 2346 hrs. DUSTY weight 30/8/60 grams 8 pounds 1.3 ounces Apgars 4/9 with short umbilical cord back for 90 seconds start 30 seconds. (RN Swapna)). Infant Delivery Method: Spontaneous Vaginal Delivery-Single. Delivery Mode: Spontaneous. Presentation : Left Occiput Anterior (DUSTY). Nuchal Cord: None (Short umbilical cord cause the baby to be initially" stunned" at delivery). Prep: Povidone-Iodine ( Betadine. Anesthesia Type: Epidural. Amniotic Fluid Description: Clear. Episiotomy Type: None. Laceration: None. Placenta: Intact, Spontaneous ( Saturday02/02/19). Cord: 3 Vessels. Estimated Blood Loss: 250. Resuscitation Needed: Yes. : Suctioned ([place] required bagging from 30 seconds after for 90 seconds.), Bulb Syringe, Stimulated, Warmed, [place] Used, Warmer Used. Provider: Maco Le. Score 1 min: 4. Score 5 min: 4. Score 10 min: 9. Delivery Comments ( Free Text/Narrative):: Monitor strip reviewed for 2 hours prior to delivery. - General Info. Date of Service: 02/02/19. Functional Status: Reports: Pain Controlled. - Review of Systems. General: Reports: No Symptoms. HEENT: Reports: No Symptoms. Pulmonary: Reports: No Symptoms. Cardiovascular: Reports : No Symptoms. Gastrointestinal: Reports: No Symptoms. Genitourinary: Reports : No Symptoms. Musculoskeletal: Reports: No Symptoms. Skin: Reports: No Symptoms. Neurological: Reports: No Symptoms. Psychiatric: Reports: No Symptoms. - Patient Data. Vitals - Most Recent: Last Vital Signs. Temp 98.2 F 02/02/19 07:11. Pulse 83 02/02/19 07:11. Resp 16 02/02/19 11:56. BP 131/ 71 02/02/19 07:11. Pulse Ox 99 02/02/19 11:56. Weight - Most Recent: 334 lb 11.2 oz. Lab Results Last 24 Hours: Laboratory Results - last 24 hr. 1904/Range/Units. 07:3407:3407:34. WBC 12.99 H (3.98-10.04) K/ mm3. RBC 4.24 (3.98-5.22) M/mm3. Hgb 12.2 (11.2-15.7) gm/L. Hct 36.4 (34.1- 44.9) %. MCV 85.8 (79.4-94.8) fl. MCH 28.8 (25.6-32.2) pg. MCHC 33.5 (32.2 -35.5) g/dl. RDW Std Deviation 41.7 (36.4-46.3) fL. Plt Count 57 L (182-369 ) K/mm3. MPV 10.1 (9.4-12.3) fl. Neut % (Auto) 71.4 H (34.0-71.1) %. Lymph % (Auto) 16.1 L (19.3-51.7) %. [place] % (Auto) 6.5 (4.7-12.5) %. Eos % ( Auto) 4.7 (0.7-5.8). Baso % (Auto) 0.2 (0.1-1.2) %. Neut # (Auto) 9.28 H ( 1.56-6.13) K/mm3. Lymph # (Auto) 2.09 (1.18-3.74) K/mm3. [place] # (Auto) 0.85 H (0.24-0.36) K/mm3. Eos # (Auto) 0.61 H (0.04-0.36) K/mm3. Baso # (Auto) 0.02 (0.01-0.08) K/mm3. Manual Slide Review Abnormal smear. RPR Non-reactive (NONREACTIVE). Blood Type O NEGATIVE. Gel Antibody Screen Negative. Range/Units. 09:32. WBC 13.22 H (3.98-10.04) K/mm3. RBC 4.21 (3.98-5.22) M/mm3. Hgb 12.3 (11.2-15.7) gm/L. Hct 36.5 (34.1-44.9) %. MCV 86.7 (79.4- 94.8) fl. MCH 29.2 (25.6-32.2) pg. MCHC 33.7 (32.2-35.5) g/dl. RDW Std Deviation 42.2 (36.4-46.3) fL. Plt Count 220 (182-369) K/mm3. MPV 10.7 (9.4- 12.3) fl. Neut % (Auto) 75.0 H (34.0-71.1) %. Lymph % (Auto) 16.0 L (19.3- 51.7) %. [place] % (Auto) 6.3 (4.7-12.5) %. Eos % (Auto) 1.9 (0.7-5.8). Baso % (Auto) 0.2 (0.1-1.2) %. Neut # (Auto) 9.92 H (1.56-6.13) K/mm3. Lymph # ( Auto) 2.11 (1.18-3.74) K/mm3. [place] # (Auto) 0.83 H (0.24-0.36) K/mm3. Eos # (Auto) 0.25 (0.04-0.36) K/mm3. Baso # (Auto) 0.03 (0.01-0.08) K/mm3. Manual Slide Review. RPR (NONREACTIVE). Blood Type. Gel Antibody Screen. Med Orders - Current: Current Medications. Diphenhydramine HCl (Benadryl) 25 mg IVPUSH Q6H PRN. PRN Reason: Pruritis. Last Admin: 02/02/19 21:52 Dose: 25 mg. Ephedrine Sulfate (Ephedrine Sulfate) 5 mg IVPUSH ASDIRECTED PRN. PRN Reason: Hypotension. Fentanyl (Sublimaze) 100 mcg EPIDUR ONETIME PRN. PRN Reason: Pain. Last Admin: 02/02/19 19:48 Dose: 100 mcg. Fentanyl/Bupivacaine HCl (Byirtxam-Juizm-Aj 2 Mcg/Ml-0.125%) 100 ml EPIDUR ASDIRECTED PRN. PRN Reason: Abdominal Pain. Last Admin: 02/02/19 19:49 Dose: 100 ml. Lactated Ringer's (Ringers, Lactated) 1,000 mls @ 100 mls/hr IV ASDIRECTED TAMIE. Last Admin: 02/02/19 20:15 Dose: 100 mls/hr. Oxytocin/Lactated Ringer's (Pitocin In Lr 10 Units/1,000 Ml) 10 unit in 1,000 mls @ 12 mls/hr IV TITRATE TAMIE; Protocol. Last Titration: 02/02/19 22:15 Dose: 14 munits/min, 84 mls/hr. Nalbuphine HCl (Nubain) 10 mg IVPUSH Q2H PRN. PRN Reason: pain. Ondansetron HCl (Zofran) 4 mg IVPUSH Q4H PRN. PRN Reason: Nausea/Vomiting. Sodium Chloride (Saline Flush) 10 ml FLUSH ASDIRECTED PRN. PRN Reason: Keep Vein Open. Discontinued Medications. Misoprostol (Cytotec) 50 mcg VAG Q3H TAMIE. Stop: 02/02/19 13:16. Last Admin: 02/02/19 13:46 Dose: 50 mcg. Misoprostol ( Cytotec) Confirm Administered Dose 25 mcg .ROUTE .STK-MED ONE. Stop: 02/02/19 07:31. Last Admin: 02/02/19 11:50 Dose: Not Given. Ondansetron HCl (Zofran) 4 mg IVPUSH ONETIME PRN. PRN Reason: Nausea/Vomiting. Stop: 02/02/19 21:00. - Exam. General: Alert, Oriented. HEENT: Pupils Equal, Mucous Membr. Moist/ [place]. Neck: Supple. Lungs: Clear to Auscultation, Normal Respiratory Effort. Cardiovascular: Regular Rate, Regular Rhythm. Extremities: Normal Inspection, Normal Range of Motion, Non-Tender, No Pedal Edema, Normal Capillary Refill. Skin: Warm, Dry, Intact. Psy/Mental Status: Alert, Normal Affect, Normal Mood. - Problem List & Annotations. (1) 39 weeks gestation of . SNOMED Code(s): 18377877. Code(s): Z3A.39 - 39 WEEKS GESTATION OF Status: Acute Current Visit: No. (2) Gestational diabetes mellitus (GDM) affecting second . SNOMED Code(s): 10202225009300. Code(s): O24.419 - GESTATIONAL DIABETES MELLITUS IN , UNSP CONTROL; O09.40 - SUPERVISION OF W GRAND MULTIPARITY, UNSP TRIMESTER Status: Acute Current Visit : No. (3) Short umbilical cord, delivered, current hospitalization. SNOMED Code(s): 220060162, 793035422. Code(s): O69.3XX0 - LABOR AND DELIVERY COMPLICATED BY SHORT CORD, UNSP Status: Acute Current Visit: Yes. - Problem List Review. Problem List Initiated/Reviewed/Updated: No. - My Orders. Last 24 Hours: My Active Orders. 02/02/19 07:10. Height and Weight [ RC] UPON. Nalbuphine [Nubain] 10 mg IVPUSH Q2H PRN. Ondansetron [Zofran] 4 mg IVPUSH Q4H PRN. Sodium Chloride 0.9% [Saline Flush] 10 ml FLUSH ASDIRECTED PRN. Resuscitation Status Routine. 02/02/19 07:11. Patient Status [ADT] Routine. Activity as Tolerated [RC] PFP. Communication Order [RC] ASDIRECTED. Notify Provider [RC] PFP. Notify Provider [RC] PRN. Vital Signs [ RC] PER UNIT ROUTINE. Electronic Heart Tones Ext w TOCO [WOMSER] Routine. Electronic Heart Tones Internal [WOMSER] Per Unit Routine. Peripheral IV Insertion Adult [OM.PC] Routine. 02/02/19 07:12. Peripheral IV Care [RC] . DIRECTED. 02/02/19 07:15. Lactated Ringers [Ringers, Lactated] 1 ,000 ml IV ASDIRECTED. 02/02/19 16:30. Oxytocin/Lactated Ringers [Pitocin in LR 10 Units/1,000 ML] 10 unit in 1,000 ml IV TITRATE. 02/02/19 Breakfast. Regular Diet [DIET]. - Plan. Plan:: Plan induction, delivery. 0740 hrs. Cytotec 50 g placed cervix unchanged from previous exam in clinic last week. initially's "stunned" and required bagging from 30 seconds until 2 minutes of life (90 seconds) Apgars 4/4/9 dual rate supervisor called as soon at 30 seconds when bagging was started. Diagnosis: Stroke: No - Discharge Data Discharge Date: 02/04/19 Discharge Disposition: Home, Self-Care 01 Condition: Good - Discharge Diagnosis/Problem(s) (1) 39 weeks gestation of SNOMED Code(s): 33702252 ICD Code: Z3A.39 - 39 WEEKS GESTATION OF Status: Acute Current Visit: No (2) Gestational diabetes mellitus (GDM) affecting second SNOMED Code(s): 75567497606925 ICD Code: O24.419 - GESTATIONAL DIABETES MELLITUS IN , UNSP CONTROL ; O09.40 - SUPERVISION OF W GRAND MULTIPARITY, UNSP TRIMESTER Status : Acute Current Visit: No (3) Short umbilical cord, delivered, current hospitalization SNOMED Code(s): 051512948, [id number] ICD Code: O69.3XX0 - LABOR AND DELIVERY COMPLICATED BY SHORT CORD, UNSP Status: Acute Current Visit: Yes - Patient Summary/Data Complications: None Consults: None Hospital Course: Uneventful - Patient Instructions Diet: Usual Diet as Tolerated Driving: Do Not Drive (I'm's 48 hours) Showering/Bathing: May Shower Notify Provider of: Fever, Increased Pain, Swelling and Redness, Drainage, Nausea and/or Vomiting - Discharge Plan *PRESCRIPTION DRUG MONITORING PROGRAM REVIEWED*: Not Applicable *COPY OF PRESCRIPTION DRUG MONITORING REPORT IN PATIENT NOEMI: Not Applicable Home Medications: Home Meds PNV95/Ferrous Fumarate/FA [ Multivitamins] 1 each PO DAILY 09/24/14 [ History] Acetaminophen [Tylenol] 650 mg PO ASDIRECTED PRN 06/01/17 [History] Loratadine/Pseudoephedrine [Claritin-D 24 Hour Tablet] 1 each PO DAILY 02/02/19 [History] Acetaminophen [Tylenol] 650 mg PO Q6H PRN tablet 02/04/19 [Rx] Docusate Sodium [Colace] 100 mg PO BID PRN cap 02/04/19 [Rx] Ibuprofen [Motrin] 600 mg PO Q6H PRN tablet 02/04/19 [Rx] Witch Roxane [Tucks] 1 pad TOP ASDIRECTED PRN pad 02/04/19 [Rx] Referrals: Maco Le MD [Primary Care Provider] - (Patient will call to make appointment to see me on February 17Saturday check) - Discharge Summary/Plan Comment DC Time >30 min.: No - Patient Data Vitals - Most Recent: Last Vital Signs Temp 97.9 F 02/04/19 08:03 Pulse 68 02/04/19 08:03 Resp 18 02/04/19 08:03 BP 126/69 02/04/19 08:03 Pulse Ox 95 02/04/19 08:03 Weight - Most Recent: 334 lb 11.2 oz I&O - Last 24 hours: Intake & Output 02/03/19 02/04/19 02/04/19 22:59 06:59 14:59 Intake Total 0 Balance 0 Lab Results - Last 24 hrs: Laboratory Results - last 24 hr 02/03/19 Range/Units 05:15 Blood Type O NEGATIVE Gel Antibody Screen Negative Screen 0 ros/5 flds - neg Rhogam Indicated Yes, baby rh pos H Med Orders - Current: Current Medications Acetaminophen (Tylenol) 650 mg PO Q4H PRN PRN Reason: mild pain or fever Docusate Sodium (Colace) 100 mg PO BID PRN PRN Reason: Constipation Last Admin: 02/03/19 17:52 Dose: 100 mg Oxytocin/Lactated Ringer's (Pitocin In Lr 10 Units/1,000 Ml) 10 unit in 1,000 mls @ 500 mls/hr IV TITRATE TAMIE Ibuprofen (Motrin) 600 mg PO Q4H PRN PRN Reason: Mild pain or fever Last Admin: 02/03/19 17:48 Dose: 600 mg Witch Roxane (Tucks) 1 pad TOP ASDIRECTED PRN PRN Reason: Perineal Comfort Measure Discontinued Medications Bupivacaine HCl (Sensorcaine-Mpf 0.25%) 10 ml .ROUTE .STK-MED ONE Stop: 02/02/19 12:01 Diphenhydramine HCl (Benadryl) 25 mg IVPUSH Q6H PRN PRN Reason: Pruritis Last Admin: 02/02/19 21:52 Dose: 25 mg Ephedrine Sulfate (Ephedrine Sulfate) 5 mg IVPUSH ASDIRECTED PRN PRN Reason: Hypotension Fentanyl (Sublimaze) 100 mcg EPIDUR ONETIME PRN PRN Reason: Pain Last Admin: 02/02/19 19:48 Dose: 100 mcg Fentanyl/Bupivacaine HCl (Upalekca-Stewf-Ys 2 Mcg/Ml-0.125%) 100 ml EPIDUR ASDIRECTED PRN PRN Reason: Abdominal Pain Last Admin: 02/02/19 19:49 Dose: 100 ml Lactated Ringer's (Ringers, Lactated) 1,000 mls @ 100 mls/hr IV ASDIRECTED TAMIE Last Admin: 02/02/19 20:15 Dose: 100 mls/hr Oxytocin/Lactated Ringer's (Pitocin In Lr 10 Units/1,000 Ml) 10 unit in 1,000 mls @ 12 mls/hr IV TITRATE TAMIE; Protocol Last Titration: 02/02/19 22:15 Dose: 14 munits/min, 84 mls/hr Misoprostol (Cytotec) 50 mcg VAG Q3H TAMIE Stop: 02/02/19 13:16 Last Admin: 02/02/19 13:46 Dose: 50 mcg Misoprostol (Cytotec) Confirm Administered Dose 25 mcg .ROUTE .[facility]-MED ONE Stop: 02/02/19 07:31 Last Admin: 02/02/19 11:50 Dose: Not Given Nalbuphine HCl (Nubain) 10 mg IVPUSH Q2H PRN PRN Reason: pain Ondansetron HCl (Zofran) 4 mg IVPUSH Q4H PRN PRN Reason: Nausea/Vomiting Ondansetron HCl (Zofran) 4 mg IVPUSH ONETIME PRN PRN Reason: Nausea/Vomiting Stop: 02/02/19 21:00 Sodium Chloride (Saline Flush) 10 ml FLUSH ASDIRECTED PRN PRN Reason: Keep Vein Open
== END 2019-02-04 11:22 | disposition home or self-care (01) | DRG 560 ==
LOC: JD.OB 06:59 → OBSVTOIN 23:46 → JD.OB 23:46
PROVIDERS: ADMIT Obstetrics & Gynecology; ATTEND Obstetrics & Gynecology
PROC: 3E0P7VZ Introduction of Hormone into Female Reproductive, Via Natural or Artificial Opening (ICD-10-PCS; principal; 2019-02-02)
PROC: 10E0XZZ Delivery of Products of Conception, External Approach (ICD-10-PCS; principal; 2019-02-02)
PROC: 10907ZC Drainage of Amniotic Fluid, Therapeutic from Products of Conception, Via Natural or Artificial Opening (ICD-10-PCS; principal; 2019-02-02)
PROC: 3E0R3BZ Introduction of Anesthetic Agent into Spinal Canal, Percutaneous Approach (ICD-10-PCS; 2019-02-02)
PROC: 00HU33Z Insertion of Infusion Device into Spinal Canal, Percutaneous Approach (ICD-10-PCS; 2019-02-02)
DX: O24.425 Gestational diabetes mellitus in childbirth, controlled by oral hypoglycemic drugs (principal); O69.3XX0 Labor and delivery complicated by short cord, not applicable or unspecified; Z37.0 Single live birth; Z3A.39 39 weeks gestation of pregnancy; O99.62 Diseases of the digestive system complicating childbirth; K21.9 Gastro-esophageal reflux disease without esophagitis; Z86.14 Personal history of Methicillin resistant Staphylococcus aureus infection
CPT/HCPCS: 01967; 36415; 51702; 59025; 59409; 85025; 85461; 86592; 86850; 86900; 86901; A9270-GY; J1200; J2590; J2790; J3010; J3490; J7120